=== PATIENT | female | born 1940 | race African-American/Black ===

== ENCOUNTER 2016-11-04 10:40 | Emergency (ER) | payer MEDICARE ==
[2016-11-04] MEDS ORDERED: NS 0.9% 1000 ML* 3,000 ML IV ONE (11:20)
[2016-11-04] MEDS ORDERED: methylPREDNISolone SOD SUCC* 125 MG 2 ML VIAL IV ONE (11:20)
[2016-11-04] MEDS ORDERED: Albuterol/Ipratropium NEB.SOL* Albuterol 2.5 MG/Ipratropium 0.5 MG 3 ML INH ONE (11:20)
[2016-11-04] MEDS ORDERED: Albuterol/Ipratropium NEB.SOL* Albuterol 2.5 MG/Ipratropium 0.5 MG 3 ML ONE (11:48)
[2016-11-04 11:51] LABS: Add Diff/Slide Review? Slide Review Added; Comments Flag Yes; Hematocrit 42 % (35-47); Hemoglobin 13.7 g/dl (12.0-16.0); Mean Corpuscular HGB Conc 33 g/dl (31-36); Mean Corpuscular Hemoglobin 30 pg (27-31); Mean Corpuscular Volume 91 fL (80-97); Mean Platelet Volume 8 um3 (7.4-10.4); Red Blood Count 4.59 10^6/ul (4.0-5.4); Red Cell Distribution Width 13 % (10.5-15); White Blood Count 3.3 10^3/ul (3.5-10.8)
[2016-11-04 12:12] LABS: BUN/Creatinine Ratio 11.9 (8-20); Calcium 9.5 mg/dL (8.6-10.3); EGFR African American 85.5 (>60); EGFR Non-African American 66.5 (>60); Globulin 3.6 g/dL (2-4); Potassium 3.9 mmol/L (3.5-5.0); Total Bilirubin 0.3 mg/dL (0.2-1.0); Total Protein 7.6 g/dL (6.4-8.9)
--- NOTE | 2016-11-04 13:22 | RAD ---
INDICATION: Cough, shortness of breath and wheezing. COMPARISON: There are no prior studies available for comparison. TECHNIQUE: Dual-energy PA and lateral views of the chest were obtained. FINDINGS: The heart is within normal limits in size. Note is made of a tortuous ectatic thoracic aorta. The lungs are hyperinflated and clear with flattening of the diaphragms consistent with chronic obstructive pulmonary disease. No pleural effusion is seen. IMPRESSION: FINDINGS CONSISTENT WITH COPD, NO EVIDENCE FOR ACUTE FINDING.
[2016-11-04] MEDS ORDERED: HYDROcodone/ACETAMIN 5-325 MG* 1 TAB PO ONE (13:56)
[2016-11-04 14:25] VITALS: BP 129/80
--- NOTE | 2016-11-04 15:35 | ED ---
Memo Andre Rebecca, scribed for Marty Hughes MD on 11/04/16 at 1103 . Respiratory - HPI Summary HPI Summary: Pt is a 75 y/o F who presents to ED c/o cough. Sx began suddenly 2 weeks ago and have been constant and worsening since onset. Cough was productive with yellow sputum for the first week, but is no longer productive, with the pt reporting it feels like phlegm is stuck in her chest. Sx aggravated by laying down and at night, alleviated by nothing, unchanged by Robitussin. Additionally c/o wheezing, fever, chills, watery eye drainage and sinus pain. Reports severe rib, chest and back musculoskeletal soreness as a result of coughing. Denies CP , edema, calf pain, body aches. Denies rash, V/D. Confirms receiving a flu and PNA vaccination this year. Denies any recent travel. Positive recent sick contact with multiple grandchildren. PMHx PNA. Current presentation of illness is not similar to when she had PNA. No PMHx COPD, emphysema, asthma. SHx no tobacco or alcohol use. - History of Current Complaint Chief Complaint: EDShortnessOfBreath Stated Complaint: SHORT OF BREATH, COUGH, CHEST PAIN Time Seen by Provider: 11/04/16 10:56 Hx Obtained From: Patient Onset/Duration: Sudden Onset, Lasting Weeks - 2 weeks, Still Present Timing: Constant Initial Severity: Moderate Current Severity: Moderate Pain Intensity: 8 Character: Wheezing, Cough (Productive) - for the first week, Cough ( Nonproductive) - currently Sputum Color: Yellow Aggravating Factor(s): Other - Laying down and at night Alleviating Factor(s): Nothing Associated Signs and Symptoms: Fever, Wheezing, Chills, Sinus Discomfort - Allergy/Home Medications Allergies/Adverse Reactions: Allergies Allergy/AdvReac Type Severity Reaction Status Date / Time No Known Allergies Allergy Verified 04/28/16 14:49 PMH/Surg Hx/FS Hx/Imm Hx Cardiovascular History: Reports: Hx Hypertension Sensory History: Reports: Hx Glaucoma Opthamlomology History: Reports: Hx Glaucoma Neurological History: Reports: Hx Migraine Infectious Disease History: No Infectious Disease History: Denies: Traveled Outside the [place] in Last 30 Days - Family History Known Family History: Positive: Other - GUPTA (sister) - Social History Alcohol Use: None Substance Use Type: Reports: None Smoking Status (MU): Never Smoked Tobacco Review of Systems Positive: Fever, Chills Positive: Drainage - watery Positive: Other - Sinus discomfort Negative: Chest Pain Positive: Cough - nonproductive Negative: Vomiting, Diarrhea Positive: Myalgia - rib, chest and back musculoskeletal pain , Other - Denies calf pain and body aches. Negative: Edema Negative: Rash All Other Systems Reviewed And Are Negative: Yes Physical Exam - Summary Physical Exam Summary: The patient is well-nourished in no acute distress and in no acute pain. The skin is warm and dry and skin color reflects adequate perfusion. HEENT: The head is normocephalic and atraumatic. The pupils are equal and reactive. Injection in her left conjunctiva more so than the right. Nares are patent and without drainage. Mouth reveals slightly dry mucous membranes and the throat is without erythema and exudate. The external ears are intact. The ear canals are patent and without drainage. The tympanic membranes are intact. Tenderness over the maxillary area and bilateral frontal sinuses. Neck is supple with full range of motion and non-tender. There are no carotid bruits. There is neck vein distension. Respiratory: Chest is non-tender. Lungs reveal bilateral wheezing and rales in the bases, more on the right than left, upon auscultation. No retractions seen. Some upper airway noise in the neck. Cardiovascular: Hear is regular rate and rhythm. There is no murmur or rub auscultated. There is no peripheral edema and pulses are symmetrical and equal. Abdomen: The abdomen is soft and non-tender. There are normal bowel sounds heard in all four quadrants and there is no organomegaly palpated. Musculoskeletal: There is no back pain noted. Extremities are non-tender with full range of motion. Capillary refill of 2 seconds with good skin turgor. There is no peripheral edema or calf tenderness elicited. Neurological: Patient is alert and oriented to person, place and time. The patient has symmetrical motor strength in all four extremities. Cranial nerves are grossly intact. Deep tendon reflexes are symmetrical and equal in all four extremities. Psychiatric: The patient has an appropriate affect and does not exhibit any anxiety or depression. Triage Information Reviewed: Yes Vital Signs On Initial Exam: Initial Vitals Temp Pulse Resp BP Pulse Ox 96.6 F 105 20 160/92 99 11/04/16 10:42 11/04/16 10:42 11/04/16 10:42 11/04/16 10:42 11/04/16 10:42 Vital Signs Reviewed: Yes Diagnostics - Vital Signs Vital Signs Temp Pulse Resp BP Pulse Ox 11/04/16 10:42 96.6 F 105 20 160/92 99 - Laboratory Lab Results: Lab Results 11/04/16 11/04/16 11/04/16 Range/Units 11:17 11:40 11:40 WBC 3.3 L (3.5-10.8) 10^3/ul RBC 4.59 (4.0-5.4) 10^6/ul Hgb 13.7 (12.0-16.0) g/dl Hct 42 (35-47) % MCV 91 (80-97) fL MCH 30 (27-31) pg MCHC 33 (31-36) g/dl RDW 13 (10.5-15) % Plt Count 263 (150-450) 10^3/ul MPV 8 (7.4-10.4) um3 Neut % (Auto) 29.2 L (38-83) % Lymph % (Auto) 47.0 (25-47) % Rankin % (Auto) 13.4 H (1-9) % Eos % (Auto) 7.9 H (0-6) % Baso % (Auto) 2.5 H (0-2) % Absolute Neuts (auto) 1.0 L (1.5-7.7) 10^3/ul Absolute Lymphs (auto) 1.6 (1.0-4.8) 10^3/ul Absolute Monos (auto) 0.4 (0-0.8) 10^3/ul Absolute Eos (auto) 0.3 (0-0.6) 10^3/ul Absolute Basos (auto) 0.1 (0-0.2) 10^3/ul Absolute Nucleated RBC 0.01 10^3/ul Nucleated RBC % 0.2 Sodium 137 (133-145) mmol/L Potassium 3.9 (3.5-5.0) mmol/L Chloride 102 (101-111) mmol/L Carbon Dioxide 30 (22-32) mmol/L Anion Gap 5 (2-11) mmol/L BUN 10 (6-24) mg/dL Creatinine 0.84 (0.51-0.95) mg/dL Est GFR ( Amer) 85.5 (>60) Est GFR (Non-Af Amer) 66.5 (>60) BUN/Creatinine Ratio 11.9 (8-20) Glucose 109 H (70-100) mg/dL Lactic Acid (0.5-2.0) mmol/L Calcium 9.5 (8.6-10.3) mg/dL Total Bilirubin 0.30 (0.2-1.0) mg/dL AST 37 (13-39) U/L ALT 34 (7-52) U/L Alkaline Phosphatase 111 H (34-104) U/L Troponin I 0.00 (<0.04) ng/mL C-Reactive Protein (< 5.00) mg/L B-Natriuretic Peptide ( - 100) pg/mL Total Protein 7.6 (6.4-8.9) g/dL Albumin 4.0 (3.2-5.2) g/dL Globulin 3.6 (2-4) g/dL Albumin/Globulin Ratio 1.1 (1-3) Influenza A (Rapid) Negative (Negative) Influenza B (Rapid) Negative (Negative) 11/04/16 11/04/16 11/04/16 Range/Units 11:40 11:40 12:00 WBC (3.5-10.8) 10^3/ul RBC (4.0-5.4) 10^6/ul Hgb (12.0-16.0) g/dl Hct (35-47) % MCV (80-97) fL MCH (27-31) pg MCHC (31-36) g/dl RDW (10.5-15) % Plt Count (150-450) 10^3/ul MPV (7.4-10.4) um3 Neut % (Auto) (38-83) % Lymph % (Auto) (25-47) % Rankin % (Auto) (1-9) % Eos % (Auto) (0-6) % Baso % (Auto) (0-2) % Absolute Neuts (auto) (1.5-7.7) 10^3/ul Absolute Lymphs (auto) (1.0-4.8) 10^3/ul Absolute Monos (auto) (0-0.8) 10^3/ul Absolute Eos (auto) (0-0.6) 10^3/ul Absolute Basos (auto) (0-0.2) 10^3/ul Absolute Nucleated RBC 10^3/ul Nucleated RBC % Sodium (133-145) mmol/L Potassium (3.5-5.0) mmol/L Chloride (101-111) mmol/L Carbon Dioxide (22-32) mmol/L Anion Gap (2-11) mmol/L BUN (6-24) mg/dL Creatinine (0.51-0.95) mg/dL Est GFR ( Amer) (>60) Est GFR (Non-Af Amer) (>60) BUN/Creatinine Ratio (8-20) Glucose (70-100) mg/dL Lactic Acid 1.1 (0.5-2.0) mmol/L Calcium (8.6-10.3) mg/dL Total Bilirubin (0.2-1.0) mg/dL AST (13-39) U/L ALT (7-52) U/L Alkaline Phosphatase (34-104) U/L Troponin I (<0.04) ng/mL C-Reactive Protein 7.57 H (< 5.00) mg/L B-Natriuretic Peptide 12 ( - 100) pg/mL Total Protein (6.4-8.9) g/dL Albumin (3.2-5.2) g/dL Globulin (2-4) g/dL Albumin/Globulin Ratio (1-3) Influenza A (Rapid) (Negative) Influenza B (Rapid) (Negative) Result Diagrams: 11/04/16 11:40 11/04/16 11:40 Lab Statement: Any lab studies that have been ordered have been reviewed, and results considered in the medical decision making process. - Radiology CXR Radiology Interpretation Completed By: Radiologist - FINDINGS CONSISTENT WITH COPD, NO EVIDENCE FOR ACUTE FINDING. - EKG 1345 Cardiac Rate: Tachycardia - 100 bpm EKG Rhythm: Sinus Rhythm ST Segment: Non-Specific - non-specific T wave changes in V2,V3, unchanged from EKG in 2011 EKG Interpretation: Normal axis, no STEMI EKG Comparison: No Significant Change - from EKG on 11/22/2011 Re-Evaluation - Re-Evaluation First Eval Re-Evaluation Time: 13:46 Change: Improved Comment: Reassesser her and listened to the lungs. A little bit of ronchi, the wheezing is gone. Pt reports feeling better besides GUPTA. Reviewed labs at length with her and reviewed CXR, likely revealing acute bronchitis but may be atypical PNA. Agreed to be D/C to home and followup with her PCP with prescriptions for an inhaler, Abx, a courseof Prednisone, and cough medication. Disposition - Course Assessment/Plan: Pt is a 75 y/o F with a CC of cough for 2 weeks, initially productive but now nonproductive. Additionally c/o wheezing, fever, chills, watery eye drainage and sinus pain. Reports severe rib, chest and back musculoskeletal soreness as a result of coughing. Denies CP, edema, calf pain, body aches. Denies rash, V/D. Rapid influenza A and B negative. CXR and EKG reveal no acute findings. Pt will be D/C to home with a dx of acute bronchitis, a followup with her PCP and prescriptions for Zithromax, an inhaler, a 5 day course of Prednisone 60 mg and Rocephin with codeine cough suppressant. - Differential Dx - Cardiopulmonary Differential Diagnoses - Cardiopulmonary: Asthma, Bronchitis, Exacerbation Of COPD, Influenza, Lower Resp Infection - Diagnoses Provider Diagnoses: Acute bronchitis Discharge - Discharge Plan Condition: Stable Disposition: HOME Prescriptions: Albuterol HFA INHALER* [Ventolin HFA Inhaler*] 2 puff INH Q6H PRN #1 mdi PRN Reason: cough Azithromycin TAB* [Zithromax TAB (Z-HEATHER) 250 mg #6 tabs] 2 tab PO .TODAY, THEN 1 DAILY #1 heather guaiFENesin/CODIEN 100MG-10MG* [Robitussin AC 100Mg-10Mg*] 10 ml PO Q4H PRN # 120 ml MDD 40 ml PRN Reason: cough predniSONE TAB* [Deltasone TAB*] 60 mg PO DAILY #15 tab Patient Education Materials: Acute Bronchitis (ED) Referrals: Rhys Arenas MD [Medical Doctor] - 3 Days (Follow up with Dr. Arenas in the next 3 days. ) The documentation as recorded by the Memo rivas Rebecca accurately reflects the service I personally performed and the decisions made by me, Marty Hughes MD.
== END 2016-11-04 14:18 | disposition home or self-care (01) ==
LOC: ED 10:40
DX: J40 Bronchitis, not specified as acute or chronic (principal); R07.9 Chest pain, unspecified; R50.9 Fever, unspecified; R06.2 Wheezing; R05 Cough
CPT/HCPCS: 36415; 71020; 80053; 83605; 83880; 84484; 85025; 86140; 87040; 87502; 93005; 94640; 96374; 99283; A9270-GY; J2930

== ENCOUNTER 2017-07-01 11:31 | Observation (INO) | payer MEDICARE, MEDICAID ==
[2017-07-01] MEDS ORDERED: Ketorolac INJ* 30 MG/ML 1 ML VIAL IV PUSH ONE (12:13)
[2017-07-01] MEDS ORDERED: NS 0.9% 1000 ML* 1,000 ML IV ONE (12:13)
[2017-07-01 12:55] LABS: Hematocrit 39 % (35-47); Hemoglobin 12.9 g/dl (12.0-16.0); Mean Corpuscular HGB Conc 34 g/dl (31-36); Mean Corpuscular Hemoglobin 30 pg (27-31); Mean Corpuscular Volume 91 fL (80-97); Mean Platelet Volume 7 um3 (7.4-10.4); Red Blood Count 4.25 10^6/ul (4.0-5.4); Red Cell Distribution Width 13 % (10.5-15); White Blood Count 10.6 10^3/ul (3.5-10.8)
--- NOTE | 2017-07-01 13:08 | RAD ---
INDICATION: Sepsis. COMPARISON: Comparison is made with a prior chest x-ray study from November 04, 2016. TECHNIQUE: A portable view of the chest was obtained. FINDINGS: Cardiac and mediastinal contours appear to be within normal limits. The lungs are slightly underinflated. There are linear densities at both lung bases most consistent with subsegmental atelectasis. The lungs are otherwise clear. No pleural effusion is seen. IMPRESSION: NO EVIDENCE FOR ACUTE FINDING.
[2017-07-01 13:10] LABS: Albumin 3.9 g/dL (3.2-5.2); Calcium 8.9 mg/dL (8.6-10.3); EGFR African American 100.2 (>60); EGFR Non-African American 77.9 (>60); Globulin 3.3 g/dL (2-4); Potassium 3.4 mmol/L (3.5-5.0); Total Bilirubin 0.5 mg/dL (0.2-1.0); Total Protein 7.2 g/dL (6.4-8.9)
[2017-07-01] MEDS ORDERED: Iohexol 350* (CONTRAST) 500 ML MDV IV ONE (13:38)
--- NOTE | 2017-07-01 14:29 | RAD ---
INDICATION: Elevated d-dimer, pleuritic chest pain. COMPARISON: Comparison is made with a prior chest x-ray study from July 01, 2017 and a prior abdominal ultrasound from February 14, 2010. TECHNIQUE: A CT angiogram of the chest was performed with intravenous following intravenous injection of 75 ml of Omnipaque 350 nonionic contrast. Contiguous axial sections were obtained from the lung apices through the lung bases. Images were reconstructed in the coronal and sagittal planes. FINDINGS: There is slightly suboptimal opacification of the pulmonary arteries. No intraluminal filling defect or pulmonary embolism is seen. The heart is within normal limits in size. There are coronary artery calcifications present. No pericardial effusion is present. The thoracic aorta is normal in caliber and demonstrates homogeneous contrast opacification. No significant enlarged mediastinal or hilar lymph nodes are seen. The lungs are clear. No pleural effusion is seen. Images of the upper abdomen demonstrate several fluid density lesions. On the prior ultrasound from 2009 note is made of several cysts and findings suggestive of hemangiomas. These likely account for the lesions on the current study. There is also pancreatic ductal distention which is unchanged from a prior MRCP of the abdomen from February 08, 2011. No significant focal osseous abnormality is seen. There is a nodular density present in the lateral aspect of the right breast measuring 2.1 x 1.6 cm in size. IMPRESSION: 1. SLIGHTLY LIMITED EXAM, NO EVIDENCE FOR PULMONARY EMBOLISM. 2. NODULAR DENSITY IN THE LATERAL RIGHT BREAST. RECOMMEND FOLLOW-UP OUTPATIENT MAMMOGRAMS AND A RIGHT BREAST ULTRASOUND FOR FURTHER EVALUATION. 3. CHRONIC PANCREATIC DUCTAL DISTENTION POSSIBLY SECONDARY TO CHRONIC PANCREATITIS. RECOMMEND CLINICAL CORRELATION.
[2017-07-01 14:31] LABS: Urine Bilirubin Negative (Negative); Urine Glucose Negative (Negative); Urine Nitrite Negative (Negative)
[2017-07-01] MEDS ORDERED: NS 0.9% 1000 ML* 2,000 ML IV ONE (15:36)
[2017-07-01] MEDS ORDERED: Clindamycin CAP* 150 MG PO ONE (15:39)
[2017-07-01] MEDS ORDERED: HYDROcodone/ACETAMIN 5-325 MG* 1 TAB PO ONE (15:55)
[2017-07-01] MEDS ORDERED: Acetaminophen TAB* 325 MG PO PRN (16:46)
[2017-07-01] MEDS ORDERED: Ondansetron INJ* 2 MG/ML VIAL IV PRN (16:46)
[2017-07-01] MEDS ORDERED: guaiFENesin LIQ* 100 MG/5 ML UDC PO PRN (16:46)
[2017-07-01] MEDS ORDERED: Albuterol 2.5 MG/3 ML NEB.SOL* (0.083%) INH PRN (16:49)
[2017-07-01] MEDS ORDERED: Saline NASAL SPRAY 0.65%* BTL BOTH NARES PRN (16:49)
[2017-07-01] MEDS ORDERED: NS 0.9% w/ 40 Meq KCL 1000 ML* 1,000 ML IV SCH (17:00)
[2017-07-01] MEDS ORDERED: Levofloxacin 500 MG IVPREMIX(* 500 MG/100 ML BAG IVPB SCH (18:00)
[2017-07-01] MEDS ORDERED: Oseltamivir CAP* 75 MG PO SCH (21:00)
[2017-07-01] MEDS: Heparin VIAL(*) 5000 UNITS/ML VIAL (FIVE THOUSAND) SUBCUT SCH (21:52)
--- NOTE | 2017-07-01 21:59 | HP ---
CC: Chay Basilio * HISTORY AND PHYSICAL: DATE OF ADMISSION: 07/01/17 TIME OF EVALUATION: 4:30 p.m. CHIEF COMPLAINT: "My body hurts." HISTORY OF PRESENT ILLNESS: Ms. Carrington is a 76-year-old lady with past medical history of hypertension, pancreatic duct dilatation that presented to the emergency room with complaints of body aches. The patient states that this month she has had 3 episodes of respiratory infection. Initially she had some cough and runny nose that improved, then it happened again when her grandson got sick and this last one started on . This last one has been more severe with fever up to 102 at home, considerable body aches, watery eyes, rhinorrhea, cough and shortness of breath. She states that she takes care of 3 grand kids at home and all 3 are sick at this time. She did not take the flu shot yet this year. She also complains of headache associated with nasal congestion that she thinks is related to sinusitis. PAST MEDICAL HISTORY: 1. Hypertension. 2. Pancreatic duct dilatation. 3. Right breast nodule being followed as outpatient. MEDICATIONS: 1. Aspirin 325 mg p.o. daily. 2. Hydrochlorothiazide 12.5 mg p.o. daily. The patient states that she also takes a medication for her stomach but she does not recall the name at this time. ALLERGIES: With CODEINE, the patient has nausea and vomiting. FAMILY HISTORY: Mother of old age. Sister has breast cancer. SOCIAL HISTORY: The patient smoked half a pack a day since high school until 15 years ago. She drinks alcohol rarely. No history of drug use. Surrogate decision maker is her daughter, Kristina Lerma, phone number is [phone]. REVIEW OF SYSTEMS: A 14-point review of systems was performed and all the pertinent negative and positive findings are in the HPI. PHYSICAL EXAMINATION GENERAL: The patient is a pleasant lady, sitting up in the ED stretcher, in no acute distress. VITAL SIGNS: Temperature 99.9, heart rate is 102, respiratory rate is 18, oxygen saturation is 96% on room air, blood pressure is 151/96. HEENT: Pupils are equal. Eyes are watery and injected. CHEST: Breath sounds present bilaterally with no added sounds. CVS: Normal S1, S2. Regular rate and rhythm. ABDOMEN: Soft. Bowel sounds are present. EXTREMITIES: No edema. NEUROLOGIC: She is alert and oriented x3, able to move all 4 extremities. LABORATORY AND IMAGING DATA: The patient had a CBC that showed a WBC of 10.6, hemoglobin of 12.9, hematocrit of 39, platelet count of 255,000 with 82% neutrophils. INR is 1.1. D-dimer was 374. Chemistry showed sodium of 136, potassium 3.4, chloride of 102, bicarb 26. BUN of 8, creatinine 0.73, glucose of 102, lactic acid of 1, calcium of 8.9, total bilirubin is 0.5, AST of 26, ALT of 26. Urinalysis was negative. Influenza A, B rapid test was also negative. Chest x-ray showed no evidence for acute finding. CTA of the chest was a slightly limited exam with no evidence of pulmonary embolism. There is a nodular density in the lateral right breast. Chronic pancreatic ductal distention possibly secondary to chronic pancreatitis. ASSESSMENT AND PLAN: Mrs. Carrington is a 76-year-old lady with a past medical history of hypertension, chronic pancreatic duct dilatation, known right breast masses that presented to the emergency room with complaints of fever, runny nose , body aches, found to have probable influenza. 1. Probable influenza: Although her influenza rapid test is negative, the patient's symptoms are suggestive of a flu. She was not vaccinated this season. She is going to be admitted as observation to the medical floor. She is going to be treated with Tamiflu. I believe she has had other upper respiratory tract infections earlier this month and she probably also has sinusitis, so I am going to start her on levofloxacin, but I believe this last episode that started on Thanksgiving is influenza. She will receive symptomatic treatment. 2. Hypertension: Her blood pressure is controlled at this time. I am going to hold her hydrochlorothiazide for now. 3. Right breast masses: The patient states that she had an ultrasound done at [place] 2 weeks ago and her primary care provider continues to follow those lesions. 4. Chronic pancreatic duct dilatation. The patient is also aware of these findings and she follows with her primary care provider. 5. DVT prophylaxis: The patient has a score of 3 on the DVT Prophylaxis Risk Assessment Guide and she will be started on subcutaneous heparin. 6. Code status is full. TIME SPENT: Approximately 60 minutes was spent with the patient and daughter interview, medical records reviewed, physical examination to complete this admission; more than half this time was spent [id number] with patient in coordination of care. [id number]/[facility] #: [id number] [place]AL[place]
[2017-07-01] MEDS ORDERED: Oxymetazoline 0.05% NASAL SPR* 15 ML BTL BOTH NARES PRN (22:02)
--- NOTE | 2017-07-01 22:27 | ED ---
Tim Andre Abhishek, scribed for Rafael Tenorio MD on 07/01/17 at 1216 . HPI Febrile Illness - HPI Summary HPI Summary: This patient is a 76 year old F presenting to [facility] accompanied by three females with a chief complaint of fever for about a week and a half. Pt states her whole face hurts and my gums hurt. The CC is described as Intermittent and worse since Sunday. The patient rates the pain 0/10 in severity. Symptoms aggravated by nothing. Symptoms alleviated by nothing. Patient reports chills, body aches, cough (wet), pain when breathing, right sided back pain and pain at the right flank, nasal congestion and dry mouth. Patient denies SOB, and diarrhea. Pt also denies taking a flu shot for this year. - History of Current Complaint Chief Complaint: EDFluSymptoms Time Seen by Provider: 07/01/17 11:42 Hx Obtained From: Patient, Family/Airline Pilot Onset/Duration: Started Weeks Ago - one week and half ago, Still Present, Worse Since - Sunday Timing: Intermittent Pain Intensity: 0 Pain Scale Used: 0-10 Numeric Aggravating Factors: Nothing Alleviating Factors: Nothing Associated Signs and Symptoms: Chills, Cough - "wet", Nausea, Other: - body aches, pain when breathing, right sided back pain and pain at the right flank, nasal congestion and dry mouth - Allergy/Home Medications Allergies/Adverse Reactions: Allergies Allergy/AdvReac Type Severity Reaction Status Date / Time Codeine Allergy Nausea Verified 07/01/17 12:39 PMH/Surg Hx/FS Hx/Imm Hx Cardiovascular History: Reports: Hx Hypertension Sensory History: Reports: Hx Glaucoma Opthamlomology History: Reports: Hx Glaucoma Neurological History: Reports: Hx Migraine Infectious Disease History: No Infectious Disease History: Denies: Traveled Outside the [place] in Last 30 Days - Family History Known Family History: Positive: Hypertension, Other - GUPTA (sister), colon cancer - Social History Alcohol Use: None Substance Use Type: Reports: None Smoking Status (MU): Never Smoked Tobacco Review of Systems Positive: Fever, Chills Positive: Photophobia ENT: Other - nasal congestion, and dry mouth Positive: Other - "pain when breathing". Negative: Shortness Of Breath Positive: Nausea. Negative: Diarrhea Genitourinary: Negative Positive: Other - body aches, right sided back pain and pain at the right flank , Skin: Negative Neurological: Negative Psychological: Normal All Other Systems Reviewed And Are Negative: Yes Physical Exam - Summary Physical Exam Summary: Constitutional: Well-developed, Well-nourished, Alert. (-) Distressed Skin: Warm, Dry HENT: Maxillary sinus tenderness Eyes: Conjunctiva normal Neck: Musculoskeletal ROM normal neck. (-) JVD, (-) Stridor, (-) Tracheal deviation Cardio: Rhythm regular, rate normal, Heart sounds normal; Intact distal pulses; The pedal pulses are 2+ and symmetric. Radial pulses are 2+ and symmetric. (-) Murmur Pulmonary/Chest wall: Effort normal. (-) Respiratory distress, (-) Wheezes, (-) Rales Abd: Soft, (-) Tenderness, (-) Distension, (-) Guarding, (-) Rebound Musculoskeletal: (-) Edema Lymph: (-) Cervical adenopathy Neuro: Alert, Oriented x3 Psych: Mood and affect Normal Triage Information Reviewed: Yes Vital Signs On Initial Exam: Initial Vitals Temp Pulse Resp BP Pulse Ox 99.9 F 114 18 142/91 96 07/01/17 11:44 07/01/17 11:44 07/01/17 11:44 07/01/17 11:44 07/01/17 11:44 Vital Signs Reviewed: Yes - Molly Coma Scale Coma Scale Total: 15 Diagnostics - Vital Signs Vital Signs Temp Pulse Resp BP Pulse Ox 07/01/17 11:49 112 95 07/01/17 11:44 99.9 F 114 18 142/91 96 - Laboratory Lab Results: Lab Results 07/01/17 07/01/17 07/01/17 Range/Units 12:37 12:37 12:37 WBC 10.6 (3.5-10.8) 10^3/ul RBC 4.25 (4.0-5.4) 10^6/ul Hgb 12.9 (12.0-16.0) g/dl Hct 39 (35-47) % MCV 91 (80-97) fL MCH 30 (27-31) pg MCHC 34 (31-36) g/dl RDW 13 (10.5-15) % Plt Count 255 (150-450) 10^3/ul MPV 7 L (7.4-10.4) um3 Neut % (Auto) 82.1 (38-83) % Lymph % (Auto) 10.0 L (25-47) % Cooper % (Auto) 7.2 (1-9) % Eos % (Auto) 0.4 (0-6) % Baso % (Auto) 0.3 (0-2) % Absolute Neuts (auto) 8.7 H (1.5-7.7) 10^3/ul Absolute Lymphs (auto) 1.1 (1.0-4.8) 10^3/ul Absolute Monos (auto) 0.8 (0-0.8) 10^3/ul Absolute Eos (auto) 0 (0-0.6) 10^3/ul Absolute Basos (auto) 0 (0-0.2) 10^3/ul Absolute Nucleated RBC 0 10^3/ul Nucleated RBC % 0 INR (Anticoag Therapy) 1.10 (0.89-1.11) APTT 30.2 (26.0-36.3) seconds D-Dimer, Quantitative 374 H (Less Than 230) ng/mL Sodium 136 (133-145) mmol/L Potassium 3.4 L (3.5-5.0) mmol/L Chloride 102 (101-111) mmol/L Carbon Dioxide 26 (22-32) mmol/L Anion Gap 8 (2-11) mmol/L BUN 8 (6-24) mg/dL Creatinine 0.73 (0.51-0.95) mg/dL Est GFR ( Amer) 100.2 (>60) Est GFR (Non-Af Amer) 77.9 (>60) BUN/Creatinine Ratio 11.0 (8-20) Glucose 102 H (70-100) mg/dL Lactic Acid (0.5-2.0) mmol/L Calcium 8.9 (8.6-10.3) mg/dL Total Bilirubin 0.50 (0.2-1.0) mg/dL AST 26 (13-39) U/L ALT 26 (7-52) U/L Alkaline Phosphatase 96 (34-104) U/L Total Protein 7.2 (6.4-8.9) g/dL Albumin 3.9 (3.2-5.2) g/dL Globulin 3.3 (2-4) g/dL Albumin/Globulin Ratio 1.2 (1-3) Urine Color Urine Appearance Urine pH (5-9) Ur Specific [place] (1.010-1.030) Urine Protein (Negative) Urine Ketones (Negative) Urine Blood (Negative) Urine Nitrate (Negative) Urine Bilirubin (Negative) Urine Urobilinogen (Negative) Ur Leukocyte Esterase (Negative) Urine Glucose (Negative) Influenza A (Rapid) (Negative) Influenza B (Rapid) (Negative) 07/01/17 07/01/17 07/01/17 Range/Units 12:37 12:55 14:10 WBC (3.5-10.8) 10^3/ul RBC (4.0-5.4) 10^6/ul Hgb (12.0-16.0) g/dl Hct (35-47) % MCV (80-97) fL MCH (27-31) pg MCHC (31-36) g/dl RDW (10.5-15) % Plt Count (150-450) 10^3/ul MPV (7.4-10.4) um3 Neut % (Auto) (38-83) % Lymph % (Auto) (25-47) % Cooper % (Auto) (1-9) % Eos % (Auto) (0-6) % Baso % (Auto) (0-2) % Absolute Neuts (auto) (1.5-7.7) 10^3/ul Absolute Lymphs (auto) (1.0-4.8) 10^3/ul Absolute Monos (auto) (0-0.8) 10^3/ul Absolute Eos (auto) (0-0.6) 10^3/ul Absolute Basos (auto) (0-0.2) 10^3/ul Absolute Nucleated RBC 10^3/ul Nucleated RBC % INR (Anticoag Therapy) (0.89-1.11) APTT (26.0-36.3) seconds D-Dimer, Quantitative (Less Than 230) ng/mL Sodium (133-145) mmol/L Potassium (3.5-5.0) mmol/L Chloride (101-111) mmol/L Carbon Dioxide (22-32) mmol/L Anion Gap (2-11) mmol/L BUN (6-24) mg/dL Creatinine (0.51-0.95) mg/dL Est GFR ( Amer) (>60) Est GFR (Non-Af Amer) (>60) BUN/Creatinine Ratio (8-20) Glucose (70-100) mg/dL Lactic Acid 1.0 (0.5-2.0) mmol/L Calcium (8.6-10.3) mg/dL Total Bilirubin (0.2-1.0) mg/dL AST (13-39) U/L ALT (7-52) U/L Alkaline Phosphatase (34-104) U/L Total Protein (6.4-8.9) g/dL Albumin (3.2-5.2) g/dL Globulin (2-4) g/dL Albumin/Globulin Ratio (1-3) Urine Color Straw Urine Appearance Clear Urine pH 8.0 (5-9) Ur Specific [place] 1.010 (1.010-1.030) Urine Protein Negative (Negative) Urine Ketones Negative (Negative) Urine Blood Negative (Negative) Urine Nitrate Negative (Negative) Urine Bilirubin Negative (Negative) Urine Urobilinogen Negative (Negative) Ur Leukocyte Esterase Negative (Negative) Urine Glucose Negative (Negative) Influenza A (Rapid) Negative (Negative) Influenza B (Rapid) Negative (Negative) Result Diagrams: 07/01/17 12:37 07/01/17 12:37 Lab Statement: Any lab studies that have been ordered have been reviewed, and results considered in the medical decision making process. - Radiology Chest X-ray Radiology Interpretation Completed By: Radiologist - CXR reveals, per radiologist, NO EVIDENCE FOR ACUTE FINDING. ED physician has reviewed this radiology report and agrees. - CT Chest CTA CT Interpretation Completed By: Radiologist - A Chest CTA reveals 1. SLIGHTLY LIMITED EXAM, NO EVIDENCE FOR PULMONARY EMBOLISM. 2. NODULAR DENSITY IN THE LATERAL RIGHT BREAST. RECOMMEND FOLLOW-UP OUTPATIENT MAMMOGRAMS AND A RIGHT BREAST ULTRASOUND FOR FURTHER EVALUATION. 3. CHRONIC PANCREATIC DUCTAL DISTENTION POSSIBLY SECONDARY TO CHRONIC PANCREATITIS. RECOMMEND CLINICAL CORRELATION. ED physician has reviewed this radiology report and agrees. - EKG 1214 EKG Rhythm: Sinus Tachycardia - [address] Segment: Normal EKG Interpretation: New TWI at V4 Re-Evaluation - Re-Evaluation 1332 Re-Evaluation Time: 13:32 Change: Unchanged Comment: Pt's daughter states "there are lot of people in the house and no heat " and patient will be not able to rest. Patient's daughter also expresses safety concern going home today. 1536 Re-Evaluation Time: 15:36 Comment: Pt reports weakness, headache, and she and her family would like to be considered for observation for viral illness Course/Dx - Course Course Of Treatment: This patient is a 76 year old F _presenting to [facility] accompanied by three females with a chief complaint of fever for about a week and a half. Patient reports chills, body aches, cough (wet), nausea, pain when breathing, right sided back pain and pain at the right flank, nasal congestion and dry mouth. Patient denies SOB, and diarrhea. A CXR reveals, per radiologist , NO EVIDENCE FOR ACUTE FINDING. ED physician has reviewed this radiology report and agrees. A chest CTA reveals A Chest CTA reveals 1. SLIGHTLY LIMITED EXAM, NO EVIDENCE FOR PULMONARY EMBOLISM. 2. NODULAR DENSITY IN THE LATERAL RIGHT BREAST. RECOMMEND FOLLOW-UP OUTPATIENT MAMMOGRAMS. AND A RIGHT BREAST ULTRASOUND FOR FURTHER EVALUATION. 3. CHRONIC PANCREATIC DUCTAL DISTENTION POSSIBLY SECONDARY TO CHRONIC PANCREATITIS. RECOMMEND CLINICAL CORRELATION. An EKG reveals 109 bpm, sinus tachycardia, normal ST segment, and new T-wave inversions at V4. ED physician has reviewed this radiology report and agrees. Reeval 1332: Pt's family member states lots of people in the house and that house has no heat. Patient will not able to rest according to daughter and patient has safety concern going home today. Reeval 1536: Patient reports. weakness, headache, and that she and her family would like to be considered for observation for viral illness. We discussed patient care with Dr. Miller and she recommended admitting the patient and will accept patient care. Patient will be admitted with a dx of sinusitis, flu-like illness and EKG abnormality. Pt is agreeable with this plan. - Diagnoses Provider Diagnoses: EKG abnormality, Flu-like symptoms, Sinusitis - Provider Notifications Discussed Care Of Patient With: Prema Miller Time Discussed With Above Provider: 15:40 Instructed by Provider To: Admit As Observation Discharge - Discharge Plan Condition: Fair Disposition: ADMITTED TO [facility] documentation as recorded by the Tim rivas Abhishek accurately reflects the service I personally performed and the decisions made by , Rafael Tenorio MD.
[2017-07-02] MEDS: Ibuprofen TAB* 600 MG PO PRN ×2 (00:58→13:56)
[2017-07-02] MEDS: Heparin VIAL(*) 5000 UNITS/ML VIAL (FIVE THOUSAND) SUBCUT SCH (05:23)
[2017-07-02 06:10] LABS: Hematocrit 34 % (35-47); Hemoglobin 11.3 g/dl (12.0-16.0); Mean Corpuscular HGB Conc 33 g/dl (31-36); Mean Corpuscular Hemoglobin 31 pg (27-31); Mean Corpuscular Volume 92 fL (80-97); Mean Platelet Volume 7 um3 (7.4-10.4); Red Cell Distribution Width 13 % (10.5-15)
[2017-07-02 06:30] LABS: BUN/Creatinine Ratio 11.9 (8-20); Calcium 8.7 mg/dL (8.6-10.3); EGFR African American 128.1 (>60); EGFR Non-African American 99.6 (>60)
[2017-07-02 08:08] VITALS: BP 149/92
--- NOTE | 2017-07-03 18:00 | DS ---
CC: Dr. Consuelo Mackey * DISCHARGE SUMMARY: DATE OF ADMISSION: 07/01/17 DATE OF DISCHARGE: 07/02/17 PRIMARY CARE PHYSICIAN: Dr. Consuelo Mackey. MY ATTENDING WHILE IN THE HOSPITAL: Dr. Malissa Sifuentes * (DICTATED BY RAFAEL MOSER) PRIMARY DISCHARGE DIAGNOSES: 1. Viral upper respiratory infection. 2. Bacterial sinusitis. SECONDARY DISCHARGE DIAGNOSES: 1. Hypertension. 2. Pancreatic duct dilatation. 3. Right breast nodule. 4. Possible muscular DVT of the lower extremity. STUDIES DONE WHILE IN THE HOSPITAL: Chest x-ray from 07/01/17, read as no evidence for acute finding. Electrocardiogram from 07/01/17 shows sinus tachycardia, right atrial enlargement, T-wave inversion and flattening in the precordial and lateral chest leads. QTc of 419, no other abnormalities. Chest thorax CTA read as slightly limited exam, no evidence for pulmonary embolism, nodular density in the lateral right breast, recommend followup outpatient mammograms and right breast ultrasound for further evaluation. Chronic pancreatic duct ductal distention possibly secondary to pancreatitis. Recommend clinical correlation. MEDICATIONS: At discharge: 1. Hydrochlorothiazide 12.5 mg p.o. daily. 2. Aspirin 325 mg p.o. daily. 3. Tylenol 650 mg p.o. q.6 hours as needed. 4. Guaifenesin 1200 mg p.o. b.i.d. 5. Ibuprofen 600 mg p.o. q.6 hours as needed. 6. Levofloxacin 750 mg p.o. daily x4. 7. Saline nasal spray one spray both nares q.4 hours as needed. New medications at discharge: Tylenol, guaifenesin, Motrin, levofloxacin, and saline nasal spray. Medications discontinued at discharge: None. HOSPITAL COURSE: This is a brief summary of the patient's presentation. For more details, please see the history and physical from Dr. Prema Joya from 07/01/17. In brief, the patient is a 76-year-old female with past medical history as above, who presents with three episodes of upper respiratory infection, cough and runny nose, which improved and then got worse again. The patient also has several members of her family where she lives with who were sick. The patient had a fever up to 102 with watery eyes, rhinorrhea, cough, and shortness of breath. The patient did not receive her flu shot. The patient was admitted for possible flu and possible bacterial sinusitis. The patient was treated with levofloxacin and received one dose of Tamiflu. The patient improved significantly overnight, but continued to have shortness of breath, cough and pain over her sinuses; however, the patient states that she felt that with antibiotics should be able to go home. The patient's influenza A and B tests were negative. The patient had no growth in her blood cultures. The patient's highest temperature in the hospital was 99.9. The patient was never hypoxic. The patient denied other acute complaints overnight. The patient asked me questions, I answered to her satisfaction. PHYSICAL EXAM ON THE DAY OF DISCHARGE: General: The patient is a 76-year-old female who appears stated age and sitting comfortably in bed in no acute distress. Vital Signs: At discharge, temperature 97.9, pulse rate 83, respiratory rate 18, oxygen saturation 97% on room air, blood pressure 149/92. HEENT: Head: Normocephalic, atraumatic. Sclerae anicteric. There is tenderness to palpation over the bilateral frontal and maxillary sinuses. Transillumination was nondiagnostic. Nasal mucosa moist without rhinorrhea. Pharynx, nonerythematous. No exudate. Oral mucosa moist. Neck: Supple, nontender. No lymphadenopathy. No carotid bruits auscultated. Cardiac: Regular rate and rhythm. No clicks, murmurs, gallops, or rubs. Pulses are 2+ in the bilateral radial, dorsalis pedis and posterior tibialis areas. No edema. Respiratory: Clear to auscultation bilaterally. No wheezes, rales, or rhonchi. Abdomen: Soft, nontender, nondistended. Bowel sounds present, normoactive in all four quadrants. No abdominal bruits auscultated. No hepatosplenomegaly. Genitourinary: No CVA tenderness or suprapubic tenderness. Skin: Clean, dry, and intact. No rash. Neuro: Cranial nerves II through XII grossly intact. No focal deficits. Alert and oriented x3. Psychiatric: Pleasant and cooperative. LABORATORY DATA: White blood cell count 11.0, hemoglobin 11.3, platelet count 238. D-dimer on admission 374. Sodium 138, potassium 4.0, chloride 110, carbon dioxide 25, anion gap of 3, BUN 7, creatinine 0.59. Glucose 95, lactic acid 1.1 , calcium 8.7, calcium 8.9. Total bilirubin 0.5, AST 26, ALT 26, alkaline phosphatase 96, protein 7.2, albumin 3.9, globulin 3.3. Urine benign. DISCHARGE PLAN: The patient will be discharged home with continuation of supportive care including antipyretics, guaifenesin and nasal spray as above. The patient was given Afrin nasal spray while in the hospital. The patient was warrant that if she is to use Afrin nasal spray at home, she should not use more than 3 days worth. The patient will be started on Levaquin for a 5 day course including the dose she received in the hospital for her bacterial sinuitis and possible community-acquired pneumonia that may resolve a secondary infection from possible influenza. The patient has had these symptoms for 5 days now and therefore even if she had the flu, would have no benefit from treatment with Tamiflu at this time. The patient should have activity as tolerated. The patient should have a heart healthy diet with no caffeine. TIME SPENT: Approximately 40 minutes were spent on this discharge, 20 of which was spent [id number] with the patient, obtaining history and physical and discussing the treatment plan. RAFAEL MOSER [id number]/[facility] #: [id number] MTDD
== END 2017-07-02 16:05 | disposition home or self-care (01) ==
LOC: ED 11:31 → SSU 16:40
PROVIDERS: ADMIT Internal Medicine; ATTEND Hospitalist
DX: J06.9 Acute upper respiratory infection, unspecified (principal); J32.9 Chronic sinusitis, unspecified; B96.89 Other specified bacterial agents as the cause of diseases classified elsewhere; I10 Essential (primary) hypertension; R10.9 Unspecified abdominal pain; R07.9 Chest pain, unspecified; R94.31 Abnormal electrocardiogram [ECG] [EKG]; I51.7 Cardiomegaly; K86.89 Other specified diseases of pancreas; N63.0 Unspecified lump in unspecified breast; Z79.899 Other long term (current) drug therapy; F17.210 Nicotine dependence, cigarettes, uncomplicated
CPT/HCPCS: 36415; 71010; 71275; 80048; 80053; 81003; 83605; 85025; 85379; 85610; 85730; 87040; 87502; 93005; 96361; 96365; 96372; 96375; 99284; A9270-GY; G0378; J1644; J1885; J1956; Q9967

== ENCOUNTER 2017-12-11 10:36 | Emergency (ER) | payer MEDICARE, MEDICAID ==
--- NOTE | 2017-12-11 11:18 | ED ---
Hypertension - HPI Summary HPI Summary: Pt here for BP check - started HCTZ through PCP's office recently - didn't take dose yet this morning as she hasn't eaten yet. Denies CV sx however she admits she's anxious about her Rt breast tenderness which was told is a cyst. After lengthy conversation, she states she feels a weight has been lifted. She will keep f/u appts w/ breast specialist but feels mentally less stressed that she has cancer. - History of Current Complaint Chief Complaint: EDHypertension Stated Complaint: HIGH BP Time Seen by Provider: 12/11/17 10:50 Hx Obtained From: Patient - Allergies/Home Medications Allergies/Adverse Reactions: Allergies Allergy/AdvReac Type Severity Reaction Status Date / Time codeine Allergy Nausea Verified 12/11/17 10:45 PMH/Surg Hx/FS Hx/Imm Hx Previously Healthy: Yes Endocrine/Hematology History: Denies: Hx Diabetes Cardiovascular History: Reports: Hx Hypertension - HCTZ GI History: Reports: Other GI Disorders - dilated pancreatic duct, resolved in hospital Sensory History: Reports: Hx Glaucoma Denies: Hx Contacts or Glasses, Hx Hearing Aid Opthamlomology History: Reports: Hx Glaucoma Denies: Hx Contacts or Glasses Neurological History: Reports: Hx Migraine - Surgical History Surgery Procedure, Year, and Place: cataracts, pancreatic duct dilation. total hysterectomy Infectious Disease History: No Infectious Disease History: Denies: Traveled Outside the [place] in Last 30 Days - Family History Known Family History: Positive: Hypertension, Other - GUPTA (sister), colon and breast cancer - Social History Occupation: Retired Lives: With Family Alcohol Use: None Hx Substance Use: No Substance Use Type: Reports: None Hx Tobacco Use: No Smoking Status (MU): Never Smoked Tobacco Physical Exam Vital Signs On Initial Exam: Initial Vitals Temp Pulse Resp BP Pulse Ox 97.3 F 96 16 140/99 95 12/11/17 10:45 12/11/17 10:45 12/11/17 10:45 12/11/17 10:45 12/11/17 10:45 Diagnostics - Vital Signs Vital Signs Temp Pulse Resp BP Pulse Ox 12/11/17 10:45 97.3 F 96 16 140/99 95 - Laboratory Lab Statement: Any lab studies that have been ordered have been reviewed, and results considered in the medical decision making process. Hypertension Course/Dx - Diagnoses Provider Diagnoses: Hypertension Discharge - Sign-Out/Discharge Documenting (check all that apply): Discharge/Admit/Transfer - Discharge Plan Condition: Stable Disposition: HOME Patient Education Materials: Hypertension (ED), Stress (ED) Referrals: Mary Anne Rider MD [Primary Care Provider] - Additional Instructions: Take blood pressure medications as directed and keep follow-up with PCP. *If you develop headache, change in vision, chest pain, shortness of breath, fatigue, return to ED If you feel stressed about medical conditions, use stress reduction techniques to aid in helping you through testing and trial periods. - Billing Disposition and Condition Condition: STABLE Disposition: HOME
[2017-12-11 11:36] VITALS: BP 138/98
== END 2017-12-11 11:28 | disposition home or self-care (01) ==
LOC: ED 10:36
DX: I10 Essential (primary) hypertension (principal)
CPT/HCPCS: 99282

== ENCOUNTER 2018-09-12 12:51 | Emergency (ER) | payer MEDICAID, MEDICARE ==
--- NOTE | 2018-09-12 13:16 | ED ---
Abdominal Pain/Female - HPI Summary HPI Summary: This patient is a 77 year old female presenting to [facility] after being sent from [place] for a hernia they could not reduce. She states she has had a hernia for a year that has been increasing in pain for the last seven months. Along with this she c/o fever, chills, and intermittent nausea. Pt states she has a large amount of diaphoresis at night. She denies abnormal bowel movements. Cartwright believes the hernia is incarcerated. Pt has not had CP or SOB. - History of Current Complaint Chief Complaint: EDAbdPain Stated Complaint: ABD PAIN/FEVER Time Seen by Provider: 09/12/18 12:58 Hx Obtained From: Patient Onset/Duration: Lasting Weeks - motnsh, Still Present Timing: Constant Severity Initially: Mild Severity Currently: Mild Pain Intensity: 2 Pain Scale Used: 0-10 Numeric Location: Umbilical Radiates: No Associated Signs and Symptoms: Positive: Fever, Nausea, Other: - chills Allergies/Adverse Reactions: Allergies Allergy/AdvReac Type Severity Reaction Status Date / Time acetaminophen [From Vicodin] Allergy Unknown Verified 09/12/18 13:08 Reaction Details codeine Allergy Nausea Verified 09/12/18 12:57 hydrocodone [From Vicodin] Allergy Unknown Verified 09/12/18 13:08 Reaction Details PMH/Surg Hx/FS Hx/Imm Hx Endocrine/Hematology History: Reports: Other Endocrine/Hematological Disorders - Rt breast cyst Denies: Hx Diabetes Cardiovascular History: Reports: Hx Hypertension - HCTZ (new med) Denies: Hx Myocardial Infarction GI History: Reports: Other GI Disorders - dilated pancreatic duct, resolved in hospital, hernia Sensory History: Reports: Hx Glaucoma Denies: Hx Contacts or Glasses, Hx Hearing Aid Opthamlomology History: Reports: Hx Glaucoma Denies: Hx Contacts or Glasses Neurological History: Reports: Hx Migraine - Surgical History Surgery Procedure, Year, and Place: cataracts, pancreatic duct dilation. total hysterectomy Infectious Disease History: No Infectious Disease History: Denies: Traveled Outside the [place] in Last 30 Days - Family History Known Family History: Positive: Hypertension, Other - GUPTA (sister), colon and breast cancer - Social History Alcohol Use: None Hx Substance Use: No Substance Use Type: Reports: None Hx Tobacco Use: No Smoking Status (MU): Never Smoked Tobacco Review of Systems Positive: Fever, Chills, Skin Diaphoresis Gastrointestinal: Negative - abnormal bowel movements. Positive: Abdominal Pain, Nausea All Other Systems Reviewed And Are Negative: Yes Physical Exam - Summary Physical Exam Summary: VITAL SIGNS: Reviewed. GENERAL: Patient is a well-developed and nourished female who is lying comfortable in the stretcher. Patient is not in any acute respiratory distress. HEAD AND FACE: No signs of trauma. No ecchymosis, hematomas or skull depressions. No sinus tenderness. EYES: PERRLA, EOMI x 2, No injected conjunctiva, no nystagmus. EARS: Hearing grossly intact. Ear canals and tympanic membranes are within normal limits. MOUTH: Oropharynx within normal limits. NECK: Supple, trachea is midline, no adenopathy, no JVD, no carotid bruit, no c- spine tenderness, neck with full ROM. CHEST: Symmetric, no tenderness at palpation LUNGS: Clear to auscultation bilaterally. No wheezing or crackles. CVS: Regular rate and rhythm, S1 and S2 present, no murmurs or gallops appreciated. ABDOMEN: there is a ventral hernia of the left side that is easily reducible. EXTREMITIES: FROM in all major joints, no edema, no cyanosis or clubbing. NEURO: Alert and oriented x 3. No acute neurological deficits. Speech is normal and follows commands. SKIN: Dry and warm Triage Information Reviewed: Yes Vital Signs On Initial Exam: Initial Vitals Temp Pulse Resp BP Pulse Ox 98.5 F 80 16 140/93 96 09/12/18 12:54 09/12/18 12:54 09/12/18 12:54 09/12/18 12:54 09/12/18 12:54 Vital Signs Reviewed: Yes Diagnostics - Vital Signs Vital Signs Temp Pulse Resp BP Pulse Ox 09/12/18 13:06 85 24 163/94 98 09/12/18 12:54 98.5 F 80 16 140/93 96 - Laboratory Result Diagrams: 09/12/18 13:42 09/12/18 13:42 Lab Statement: Any lab studies that have been ordered have been reviewed, and results considered in the medical decision making process. - CT CT ABD/Pelvis CT Interpretation Completed By: Radiologist Summary of CT Findings: Renal cysts. Diverticulosis without definite evidence of diverticulitis. Prominent pancreatic duct without abrupt termination of the pancreatic duct. Multiple hepatic cysts are noted. Dr Zapien has reviewed this report - EKG 1323 Cardiac Rate: NL EKG Rhythm: Sinus Rhythm - at 82 BPM EKG Comparison: No Significant Change - compared to 07-01-17 Summary of EKG Findings: no ST elevations Abdominal Pain Fem Course/Dx - Course Course Of Treatment: Blood work without any significant abnormality except for potassium level of 3.4 and urinalysis negative for UTI. Abdominopelvic CT impression: Renal disease. Diverticulosis without definite evidence of diverticulitis. Prominent pancreatic duct without a bruit termination of the pancreatic duct. Multiple hepatic cysts are noted. In the ED course during the physical exam the patient doesnt have an incarcerated hernia. The hernias is easily reduced the left sided ventral hernia. The patient will be referred to surgery since the hernia is causing pain. I discussed all the findings and test results with the patient. Patient was instructed to return to the emergency room immediately if any of the symptoms return or worsens. Plan of care was discussed with the patient and understands and agrees. All questions were answered at patient satisfaction. There were no further complaints or concerns. Lung exam before discharge: CTA B/L. Good air exchange. No wheezing or crackles heard. CVS: S1 and S2 present. No murmurs appreciated. Patient is alert and oriented x 3. Patient is hemodynamically stable. Patient will be discharged home with follow up PCP in the next 2-3 days - Diagnoses Differential Diagnosis: Positive: Appendicitis, Bowel Obstruction, Constipation , Diverticulitis, Urinary Tract Infection Provider Diagnoses: Ventral hernia, Abdominal pain, acute, Hepatic cyst Discharge - Sign-Out/Discharge Documenting (check all that apply): Patient Departure Patient Received Moderate/Deep Sedation with Procedure: No - Discharge Plan Condition: Stable Disposition: HOME Patient Education Materials: Acute Abdominal Pain (ED), Ventral Hernia (ED) Referrals: Mary Anne Rider MD [Primary Care Provider] - Shaun Arroyo MD [Medical Doctor] - 1 Day Additional Instructions: Follow up with your primary care physician in 1-3 days. RETURN TO THE EMERGENCY DEPARTMENT FOR CHANGING OR WORSENING SYMPTOMS. - Billing Disposition and Condition Condition: STABLE Disposition: Home - Attestation Statements Document Initiated by Scribe: Yes Documenting Scribe: Spencer Cole Provider For Whom Scribe is Documenting (Include Credential): Omid Zapien MD Scribe Attestation: Spencer Andre scribed for Omid Zapien MD on 09/13/18 at 2049. Scribe Documentation Reviewed: Yes Provider Attestation: The documentation as recorded by the Spencer rivas accurately reflects the service I personally performed and the decisions made by me, Omid Zapien MD Status of Scribnnamdi Document: Viewed
[2018-09-12] MEDS ORDERED: NS 0.9% 1000 ML** 1,000 ML IV ONE (13:18)
[2018-09-12 13:44] LABS: Urine Appearance Clear; Urine Bilirubin Negative (Negative); Urine Blood Negative (Negative); Urine Color Yellow; Urine Glucose Negative (Negative); Urine Ketones Negative (Negative); Urine Nitrite Negative (Negative); Urine Protein Negative (Negative); Urine Specific Gravity 1.018 (1.010-1.030); Urine Urobilinogen Negative (Negative)
[2018-09-12 14:05] LABS: ABS Basophils 0 10^3/ul (0-0.2); ABS Eosinophils 0.2 10^3/ul (0-0.6); ABS Lymphocytes 1.2 10^3/ul (1.0-4.8); ABS Monocytes 0.3 10^3/ul (0-0.8); ABS Nucleated RBC 0 10^3/ul; Eosinophil % 4.7 %; Hematocrit 39 % (35-47); Hemoglobin 12.9 g/dl (12.0-16.0); Lymphocyte % 32.6 %; Mean Corpuscular HGB Conc 33 g/dl (31-36); Mean Corpuscular Hemoglobin 31 pg (27-31); Mean Corpuscular Volume 91 fL (80-97); Mean Platelet Volume 7.5 fL (7.4-10.4); Nucleated Red Blood Cells % 0.1; Platelet Count 312 10^3/ul (150-450); Red Blood Count 4.22 10^6/ul (4.00-5.40); Red Cell Distribution Width 13 % (10.5-15); White Blood Count 3.8 10^3/ul (3.5-10.8)
[2018-09-12 14:18] LABS: Albumin 3.8 g/dL (3.2-5.2); Albumin/Globulin Ratio 1.2 (1-3); BUN/Creatinine Ratio 27.7 (8-20); C Reactive Protein 5.32 mg/L (<8.01); Calcium 9.7 mg/dL (8.6-10.3); EGFR African American 107.5 (>60); EGFR Non-African American 88.9 (>60); Globulin 3.1 g/dL (2-4); Potassium 3.4 mmol/L (3.5-5.0); Total Bilirubin 0.3 mg/dL (0.2-1.0); Total Protein 6.9 g/dL (6.4-8.9)
[2018-09-12] MEDS ORDERED: Iohexol 300* (CONTRAST) 10 ML SDV IV ONE (14:38)
[2018-09-12] MEDS ORDERED: Potassium Chlor TAB* 20 MEQ TAB.ER PO ONE (15:13)
[2018-09-12 16:59] VITALS: BP 136/93
== END 2018-09-12 17:09 | disposition home or self-care (01) ==
LOC: ED 12:51
DX: K43.9 Ventral hernia without obstruction or gangrene (principal); R10.9 Unspecified abdominal pain; K76.89 Other specified diseases of liver; R11.0 Nausea; R50.9 Fever, unspecified; I10 Essential (primary) hypertension
CPT/HCPCS: 36415; 74177; 80053; 81003; 83605; 83690; 85025; 86140; 93005; 99283; A9270-GY; Q9967

== ENCOUNTER 2019-07-12 11:13 | Emergency (ER) | payer MEDICARE ==
[2019-07-12] MEDS ORDERED: Acetaminophen TAB* 325 MG PO ONE (11:31)
[2019-07-12 11:36] VITALS: BP 142/83
--- NOTE | 2019-07-12 12:04 | UC ---
Lower Extremity/Ankle HPI - HPI Summary HPI Summary: 78-year-old female presents with complaints of right ankle pain. States one week ago she slipped and fell in her kitchen causing a twisting injury to the right ankle. Reports bruising and swelling of the ankle immediately after the injury which has been improving. Reports she has been unable to walk or bear weight since that time of the injury and has been using crutches at home to ambulate. Patient states that she has been unable to seek medical attention as she was noted at her home. Has been taking acetaminophen with some relief in pain. Last dose was at 3 AM this morning. Reports previous fracture to the right leg. Denies numbness or tingling. - History of Current Complaint Chief Complaint: UCLowerExtremity Stated Complaint: ANKLE INJURY Time Seen by Provider: 07/12/19 11:21 Hx Obtained From: Patient Pain Intensity: 8 - Allergies/Home Medications Allergies/Adverse Reactions: Allergies Allergy/AdvReac Type Severity Reaction Status Date / Time acetaminophen [From Vicodin] Allergy Unknown Verified 07/12/19 11:39 Reaction Details codeine Allergy Nausea Verified 07/12/19 11:39 hydrocodone [From Vicodin] Allergy Unknown Verified 07/12/19 11:39 Reaction Details Home Medications: Home Medications Acetaminophen [8Hr Arthritis Pain Relief] 800 mg PO ONCE PRN 07/12/19 [History Confirmed 07/12/19] Benzonatate 100 mg PO TID PRN 07/12/19 [History Confirmed 07/12/19] hydrOXYzine HCl [Hydroxyzine HCl] 1 tab PO DAILY PRN 07/12/19 [History Confirmed 07/12/19] PMH/Surg Hx/FS Hx/Imm Hx Cardiovascular History: Hypertension GI/ History: Gastroesophageal Reflux - Surgical History Surgical History: Yes Surgery Procedure, Year, and Place: cataracts, glaucoma, pancreatic duct dilation. total hysterectomy. hernia repair - Family History Known Family History: Positive: Hypertension, Other - GUPTA (sister), colon and breast cancer - Social History Occupation: Retired Lives: Alone Alcohol Use: None Substance Use Type: None Smoking Status (MU): Never Smoked Tobacco - Immunization History Most Recent Influenza Vaccination: has not had Most Recent Pneumonia Vaccination: has had within the last 5 years Review of Systems All Other Systems Reviewed And Are Negative: Yes Constitutional: Positive: Negative Skin: Positive: Bruising Respiratory: Positive: Negative Cardiovascular: Positive: Negative Gastrointestinal: Positive: Negative Genitourinary: Positive: Negative Motor: Negative: Weakness Neurovascular: Negative: Decreased Sensation Musculoskeletal: Positive: Other: - See HPI Neurological: Positive: Negative Is Patient Immunocompromised?: No Physical Exam - Summary Physical Exam Summary: GENERAL APPEARANCE: Well developed, well nourished, alert and cooperative, and appears to be in no acute distress. CARDIAC: Normal S1 and S2. No S3, S4 or murmurs. Rhythm is regular. There is no peripheral edema, cyanosis or pallor. Extremities are warm and well perfused. Capillary refill is less than 2 seconds. Peripheral pulses intact. LUNGS: Clear to auscultation without rales, rhonchi, wheezing or diminished breath sounds. ABDOMEN: Positive bowel sounds. Soft, nondistended, nontender. No guarding or rebound. No masses or hepatosplenomegally. MUSKULOSKELETAL: ROM intact to all extremities. No joint erythema or tenderness. Normal muscular development. Normal gait. EXTREMITIES: Tenderness over the right lateral malleolus with mild edema. No gross deformity or ecchymosis noted. ROM limited due to pain. Circulation and sensation intact. SKIN: Skin normal color, texture and turgor. Triage Information Reviewed: Yes Vital Signs: Initial Vital Signs Temp 98.1 F 07/12/19 11:26 Pulse 95 07/12/19 11:26 Resp 18 07/12/19 11:26 BP 142/83 07/12/19 11:26 Pulse Ox 100 07/12/19 11:26 Vital Signs Reviewed: Yes Procedures - Splinting Right Lower Extremity Location: right ankle Hand-Made Type: orthoglass Splint: posterior with stirrup Pre-Proc Neuro Vasc Exam: normal Post-Proc Neuro Vasc Exam: normal Splint Applied by Provider: [facility] - Radiology No standard instances Radiology Interpretation Completed By: Radiologist Summary of Radiographic Findings: Order Information: ANKLE RIGHT 3+VWS. INDICATION: Right ankle injury. TECHNIQUE: 3 views of the right ankle were obtained. FINDINGS: There is generalized soft tissue swelling. The bones are mildly osteopenic. A nondisplaced fracture of the distal fibula extends superiorly from the level of the ankle mortise. Near-anatomic alignment is maintained. IMPRESSION: Soft tissue swelling with a nondisplaced distal fibular fracture. Lower Extremity Course/Dx - Course Course Of Treatment: 78-year-old female presents with complaints of right ankle pain. States one week ago she slipped and fell in her kitchen causing a twisting injury to the right ankle. Reports bruising and swelling of the ankle immediately after the injury which has been improving. Reports she has been unable to walk or bear weight since that time of the injury and has been using crutches at home to ambulate. Patient states that she has been unable to seek medical attention as she was noted at her home. Has been taking acetaminophen with some relief in pain. Last dose was at 3 AM this morning. Reports previous fracture to the right leg. Denies numbness or tingling. Afebrile. Hypertensive otherwise vital signs stable. Patient had tenderness over the right lateral malleolus with mild edema without gross deformity or ecchymosis noted, ROM limited due to pain, circulation and sensation were intact. Remainder of exam was unremarkable. X-ray showed a nondisplaced fracture of the distal fibula that extends superiorly from the level of the ankle mortise. Results reviewed with the patient. She was placed in a posterior short leg and stirrup splint by myself using Ortho-Glass. Circulation sensation were intact pre-and post- application. She is to follow-up with orthopedic surgery in 3-5 days. Splint care, anticipatory guidance, and warning symptoms are reviewed with the patient. Verbalizes understanding and agrees with plan of care. - Differential Dx/Diagnosis Differential Diagnosis/HQI/PQRI: Contusion, Dislocation, Fracture (Closed), Sprain Provider Diagnosis: Closed right ankle fracture Discharge ED - Sign-Out/Discharge Documenting (check all that apply): Patient Departure All imaging exams completed and their final reports reviewed: Yes - Discharge Plan Condition: Stable Disposition: HOME Patient Education Materials: Ankle Fracture (ED), Crutch Instructions (ED), Splint Care (ED) Referrals: Mary Anne Rider MD [Primary Care Provider] - Dinesh Mtz MD [Medical Doctor] - 3 Days (Call for appointment.) Additional Instructions: The x-ray performed in the clinic today showed evidence of a fracture of the distal fibula. Rest the ankle as much as possible. You should remain [id number] on the ankle. Use your crutches for support. Wear the splint that was applied in the clinic at all times. Do not get this wet. Apply ice to the affected area for 15-20 minutes at least 4 times a day to help with the pain and swelling. Elevate the leg to help reduce swelling. Take acetaminophen (Tylenol) according to directions as needed for pain. You were given a dose in the clinic at 12:00 pm today. Follow up with orthopedic surgery in 3-5 days for further evaluation and treatment. Call Sunday morning for an appointment. Seek immediate medical attention if you have severe pain not managed with pain medication, develop numbness or tingling in the foot or toes, or have any worsening of symptoms. - Billing Disposition and Condition Condition: STABLE Disposition: Home - Attestation Statements Provider Attestation: I was available for consult. This patient was seen by the DIANE. The patient was not presented to, seen by, or examined by me. -Xin
== END 2019-07-12 12:45 | disposition home or self-care (01) ==
LOC: UCEAST 11:13
DX: S82.831A Other fracture of upper and lower end of right fibula, initial encounter for closed fracture (principal); W01.0XXA Fall on same level from slipping, tripping and stumbling without subsequent striking against object, initial encounter; X50.1XXA Overexertion from prolonged static or awkward postures, initial encounter; Y92.000 Kitchen of unspecified non-institutional (private) residence as the place of occurrence of the external cause; I10 Essential (primary) hypertension; Z88.6 Allergy status to analgesic agent; Z88.5 Allergy status to narcotic agent
CPT/HCPCS: 99212; A9270-GY; G0463

== ENCOUNTER 2019-10-06 10:13 | Emergency (ER) | payer MEDICARE ==
--- OUTSIDE RECORDS SUMMARY | 2019-10-06 10:17 | XMS REPORT | Summary of Care ---
:1940 Author Organization [facility] Address [address] [place] [address] Care Team Providers Name Role Phone Mary Anne Rider MD Primary Care Provider Reason for Visit Reason Comments Follow Up 6 months; no complaints at this time Encounter Details Date Type Department Care Team Description 09/22/2019 Office Visit Christine Angel NP Liver cyst (Primary Dx); Gastroenterology [address] [place] [address] [place] [phone] Allergies Active Allergy Reactions Severity Noted Date Comments Codeine GI Reaction 11/09/2016 Hydrocodone-Acetaminophen GI Reaction Medium 03/02/2011 documented as of this encounter (statuses as of 09/22/2019) Medications Medication Sig Dispensed Refills Start Date End Date Status aspirin 325 MG Oral Take 325 mg by 0 Active Tab mouth DAILY. Brimonidine Tartrate Place to the 0 Active (ALPHAGAN P) 0.1 % external eye. Ophthalmic Solution fluticasone (FLONASE) [place] 2 Sprays in 1 Bottle 5 12/19/2017 Active 50 MCG/ACT Nasal nose DAILY. SuspensionIndications: Allergic sinusitis Additional Information Patient taking differently: 2 [place] Nasal DAILY PRN, Reported on 10/15/2018 1 :16 PM hydrochlorothiazide (HCTZ, TAKE 2 CAPSULES BY 60 Cap 5 05/26/2019 Active ORETIC) 12.5 MG Oral MOUTH EVERY DAY CapIndications: Essential hypertension Lansoprazole 30 MG Oral CAPSULE TAKE 1 CAPSULE BY MOUTH 30 Cap 5 2018 Active DELAYED RELEASE EVERY DAY hydrOXYzine HCL (ATARAX) 10 MG TAKE 1 TABLET BY MOUTH 90 Tab 1 07/17/2019 Active Oral TabIndications: Vertigo AT BEDTIME NEEDED FOR VERTIGO OR DIZZINESS benzonatate (TESSALON PERLES) 100 Take 1 Cap by mouth 42 Cap 3 08/07/2019 Active MG Oral CapIndications: Acute THREE TIMES DAILY bronchitis, unspecified organism NEEDED for cough. documented as of this encounter (statuses as of 09/22/2019) Active Problems Problem Noted Date Liver cyst 09/22/2019 Ventral hernia without obstruction or gangrene 09/27/2018 Overview: Added automatically from request for surgery [id number] PVD (peripheral vascular disease) 12/19/2017 BMI 31.0-31.9,adult 11/09/2016 Essential hypertension 11/09/2016 Glaucoma 11/09/2016 Obesity, unspecified 11/23/2011 Overview: This patient's BMI This patient's BMI has been calculated and is above average, and BMI management plan is completed. General patient education discussion including: weight loss link to reduction of r isk factors for cardiac and other diseases, importance of long-term maintenance treatment in weight loss, and accomplish with exercise as tolerated and diet control Pancreatic duct dilated 06/12/2011 Subclinical hyperthyroidism 03/03/2010 Last Assessment & Plan: Pt is a 69 year old female referred by her PCP For evaluation of her thyroid status . Her TSH as on 12/20/09 is less then 0.02 and her thyroid peroxidase antibody is greater than 1300. She denies any pa lpitations or tremors or any tenderness of her thyroid.She complains of weight gain. In view of her TSH and anti TPO levels and lack of symptomatic correlation , she is more likely to have subclinical hyperthyroidism ,As her thyroid function tests were done more than a month ago the jamar n would be to repeat her , TSH , Free T4 and T3 and reassess for further management. Her need for further diagnostic testing by RA[facility] and medications Vs radioablation can be determined after the resul ts. Acute thyroiditis seems unlikely in absence of any pain, tenderness or swelling of the gland. Pt has been started on deltasone tab PO 20 mg on a tapering dose for her thyroiditis by her PCP. She is currently taking 10 mg daily and we decide to discontinue it as it is unlikely to benefit her from thyroid point of view Pt has been explained the plan and will be notified after her results are available. . Dilated pancreatic duct FH: breast cancer History of DVT in adulthood documented as of this encounter (statuses as of 09/22/2019) Resolved Problems Problem Noted Date Resolved Date BMI 30.0-30.9,adult 02/02/2011 11/23/2011 documented as of this encounter (statuses as of 09/22/2019) Immunizations Name Administration Dates Next Due Influenza (IM) Preservative Free 10/17/2018, 08/14/2013, 05/18/2012, 06/08/2009 Influenza Vaccine High Dose 04/10/2019, 07/18/2017, 08/18/2016 PNEUMOCOCCAL POLYSACCHARIDE VACCINE 09/11/2013 Pneumococcal Conjugate(13 Valent) 08/18/2016 documented as of this encounter Social History Tobacco Use Types Packs/Day Years Used Date Former Smoker Cigarettes 1 8 Quit: 03/02/2005 Smokeless Tobacco: Never Used Comments: quit 2005 Alcohol Use Drinks/Week oz/Week Comments No Sex Assigned at Date Recorded Not on file documented as of this encounter Last Filed Vital Signs Vital Sign Reading Time Taken Comments Blood Pressure 138/78 09/22/2019 9:18 AM EST Pulse 82 09/22/2019 9:18 AM EST Temperature - - Respiratory Rate - - Oxygen Saturation - - Inhaled Oxygen Concentration - - Weight 87.9 kg (193 lb 11.2 oz) 09/22/2019 9:18 AM EST Height 167.6 cm (5' 6") 09/22/2019 9:18 AM EST Body Mass Index 31.26 09/22/2019 9:18 AM EST documented in this encounter Patient Instructions Patient InstructionsChristine Jiang NP - 09/22/2019 9:00 AM ESTPatient Education Gas and Bloating The Basics Written by the doctors and editors at [facility] What causes gas?Causes of gas include: Swallowing air, often while eating, drinking, or smoking. Swallowed air usually comes back out as a burp. Eating certain foods, such as beans, broccoli, fruit, wheat, potatoes, corn , and noodles. Bacteria in the intestines digest parts of these foods and spit out gas. Trouble digesting certain foods, such as wheat or dairy products Conditions that harm the digestive system What causes bloating?The colon has a lot of bends in it ( figure 1). When air gets trapped in these bends, you might feel cramps or sharp pains. This pain is common in the middle and top of the belly on either side. How much gas is normal?Most people pass gas 14 to 23 times each day. Burping beforeand after meals is also common. Gas bothers some people more than others. Why does my gas smell?Most of the gas that comes out of your anus has no smell. Butsome of it contains a substance called sulfur. Sulfur smells bad to most people. Is there anything I can do on my own to get rid of gas and bloating?You might feel better if you: Cut down on certain foods. Write down what you eat so you can figure out which foods are causing your gas. Everyone's body is different. Common causes of gas are: ?? Milk and dairy products ?? Beans ?? Some vegetables, such as cabbage, [employer] sprouts, asparagus, broccoli, potatoes, and corn ?? Some whole grains, such as wheat ?? Most types of fruit ?? Artificial sweeteners ?? Soda and other fizzy drinks ?? Chewing gum Take medicines that contain simethicone (sample brand names: Maalox Anti- Gas, Mylanta Gas, Gas-X, or Phazyme). You can get these at a drug store. Simethicone breaks up gas bubbles in your intestines. Doctors aren't sure how well it works. Take a product called Beano. This can help your body digest beans and some vegetables. Take a medicine called bismuth subsalicylate (brand name: Pepto-Bismol). This can help make gassmell less bad. Should I see a doctor or nurse?See your doctor or nurse if you also have any of these symptoms: Diarrhea Unexplained weight loss Belly pain Blood in bowel movements Loss of appetite Unexplained fever Throwing up Are there tests I should have?Your doctor or nurse will decide which tests you should have based on your age, other symptoms, and individual situation. There are lots of tests, but youmight not need any. Here are the most common tests doctors use to find the cause of gas and bloating : Tests on a sample of your bowel movements to check for blood, unusual levels of fat, and other things Blood test to see if your body has trouble digesting an ingredient called gluten. Gluten is in bread, pasta, condiments, and other foods. Breath test to see if your body has trouble digesting dairy products or if you have an over-growth of bacteria in your intestines. X-rays to see if there is something wrong with your intestines Upper endoscopy or colonoscopy ? For these tests, the doctor puts a thin tube into your stomach or colon. The tube has a camera attached to it, so the doctor can see inside you. The doctor can also take samples of tissue to look at under the microscope (figure 2). How is gas and bloating treated?That depends on what is causing your gas and bloating. Treatments can include: Changing what you eat and drink Changing how you eat and drink. Eating more slowly can help with burping. Using supplements to help you digest dairy products Taking medicines that you can buy at a drug store Taking medicines that your doctor prescribes Can gas be prevented?You can reduce your chances of getting gas again by: Staying away from foods and drinks that cause gas for you Taking Beano when you eat beans and some vegetables Taking supplements that help you digest dairy, if that is your problem Eating more slowly All topics are updated as new evidence becomes available and our peer review process is complete. This topic retrieved from [employer] on: Jun 10, 2019. Topic 27107 Version 4.0 Release: 27.4.5 - C27.318 ?2019?[employer]. and/or its affiliates.?All rights reserved. figure 1: Digestive system This drawing shows the organs in the body that process food. Together these organs are called "the digestive system," or "digestive tract." As food travels through this system, the body absorbs nutrients and water. Graphic 30322 Version 4.0 figure 2: Colonoscopy During a colonoscopy, you lie on your side and the doctor or nurse puts a thin tube with a camera into your anus (from behind). Then the doctor or nurse advances the tube into the rectum and colon. [employer] sends pictures from inside your colon to a television screen. Graphic 45071 Version 5.0 Consumer Information Use and Disclaimer This information is not specific medical advice and does not replace information you receive from your health care provider. This is only a brief summary of general information. It does NOT include allinformation about conditions, illnesses, injuries, tests, procedures, treatments, therapies, discharge instructions or life-style choices that may apply to you. You must talk with your health care provider for complete information about your health and treatment options. This information should not beused to decide whether or not to accept your health care provider's advice, instructions or recommendations. Only your health care provider has the knowledge and training to provide advice that is right for you.The use of [employer] content is governed by the [employer] Terms of Use. 2019 [employer]. All rights reserved. Copyright ?2019?[employer]. and/or its affiliates.?All rights reserved. documented in this encounter Progress Notes Christine Jiang NP - 09/22/2019 9:00 AM EST PATIENT:Isatu Carrington : 1940 DATE OF SERVICE: 09/22/2019 Chief Complaint Patient presents with ? Follow Up 6 months; no complaints at this time SUBJECTIVE: Isatu Carrington is a very pleasant 78-y.o. female who presents for follow-up. MRI showing dilated pancreatic duct with no worrisome and no suspicious findings , grossly unchanged since 2011. Numerous cyst or hamartomas throughout liver similar to before, no worrisome and no suspicious findings. Patient states she experiences bloating periodically but will take Gas-X with resolution. No GI complaints at today's visit. Pt denies: dysphagia, hematemesis, heartburn, abdominal pain, melena, hematochezia, nausea, vomiting, constipation, diarrhea, fever, chills, weight loss, fatigue, jaundice, itching, sore throat, sinus pain, eye pain, visual disturbances, palpitations, leg swelling, cough, shortness of breath, dysuria, hematuria, easy bruising, easy bleeding, dizziness, confusion. Past Medical History: Diagnosis Date ? Dilated pancreatic duct ? Embolism and thrombosis of unspecified site DVT ? Essential (primary) hypertension ? FH: breast cancer 2 sisters from breast cancer ? Gastritis ? Glaucoma ? Hernia of abdominal cavity ? History of DVT in adulthood ? Other postprocedural status(V45.89) left marino cyst aspiration ? Pancreatitis after testing, years ago, hospitalized at [facility] ? Postmenopausal ? RAD (reactive airway disease) with wheezing wheezes when ill family history includes Allergies in her daughter; Asthma in her brother; Breast Cancer in her sister; Cancer in her sister; Cancer (age of onset: 58) in her sister; GI in her brother; Heart in her daughter; Hypertension in her brother, father, mother, and sister; Ovarian Cancer in her maternal aunt; Stroke in her father; Thyroid in her daughter. Past Surgical History: Procedure Laterality Date ? CATARACT EXTRACTION NEC ? COLONOSCOPY N/A 03/07/2018 Procedure: COLONOSCOPY; Surgeon: Nikole Valentin MD; Location: [facility] GI OR ? COLONOSCOPY DIAGNOSTIC ? EGD (CARTWRIGHT / NON CARTWRIGHT) with esoph. dilatation ? CO APPENDECTOMY ? CO GI NUCLEAR PROCEDURE UNLISTED abdominal surgery for gas build up, ? ? CO TOTAL ABDOM HYSTERECTOMY Social History Socioeconomic History ? Marital status: Single Spouse name: Not on file ? Number of children: Not on file ? Years of education: Not on file ? Highest education level: Not on file Occupational History ? Not on file Social Needs ? Financial resource strain: Not on file ? Food insecurity Worry: Not on file Inability: Not on file ? Transportation needs Medical: Not on file Non-medical: Not on file Tobacco Use ? Smoking status: Former Smoker Packs/day: 1.00 Years: 8.00 Pack years: 8.00 Types: Cigarettes Last attempt to quit: 03/02/2005 Years since quittin.5 ? Smokeless tobacco: Never Used ? Tobacco comment: quit 2006 Substance and Sexual Activity ? Alcohol use: No ? Drug use: No ? Sexual activity: Not Currently Lifestyle ? Physical activity Days per week: Not on file Minutes per session: Not on file ? Stress: Not on file Relationships ? Social connections Talks on phone: Not on file Gets together: Not on file Attends spiritism service: Not on file Active member of club or organization: Not on file Attends meetings of clubs or organizations: Not on file Relationship status: Not on file ? Intimate partner violence Fear of current or ex partner: Not on file Emotionally abused: Not on file Physically abused: Not on file Forced sexual activity: Not on file Other Topics Concern ? Back Care Not Asked ? Bike Helmet Not Asked ? Blood Transfusions No ? Caffeine Concern Not Asked ? Exercise Yes Comment: walks daily 1mile ? Hobby Hazards Not Asked ? International Travel Not Asked ? Service Not Asked ? Occupational Exposure Not Asked ? Seat Belt Not Asked ? Self-Exams Not Asked ? Sleep Concern Not Asked ? Special Diet Not Asked ? Stress Concern Not Asked ? Weight Concern Not Asked Social History Narrative Single 3 children. 7 grandchildren that live with her. Pets: puppy Vicodin [hydrocodone-acetaminophen] and Codeine Current Outpatient Medications Medication Sig ? aspirin 325 MG Oral Tab Take 325 mg by mouth DAILY. ? benzonatate (TESSALON PERLES) 100 MG Oral Cap Take 1 Cap by mouth THREE TIMES DAILY NEEDED for cough. ? Brimonidine Tartrate (ALPHAGAN P) 0.1 % Ophthalmic Solution Place to the external eye. ? fluticasone (FLONASE) 50 MCG/ACT Nasal Suspension [place] 2 Sprays in nose DAILY. (Patient taking differently: [place] 2 Sprays in nose DAILY NEEDED. ) ? hydrochlorothiazide (HCTZ, ORETIC) 12.5 MG Oral Cap TAKE 2 CAPSULES BY MOUTH EVERY DAY ? hydrOXYzine HCL (ATARAX) 10 MG Oral Tab TAKE 1 TABLET BY MOUTH AT BEDTIME NEEDED FOR VERTIGO OR DIZZINESS ? Lansoprazole 30 MG Oral CAPSULE DELAYED RELEASE TAKE 1 CAPSULE BY MOUTH EVERY DAY No current facility-administered medications for this visit. ROS: A comprehensive 10 point ROS was completed and negative except as mentioned in HPI. OBJECTIVE: BP 138/78 | Pulse 82 | Ht 5' 6" (1.676 m) | Wt 193 lb 11.2 oz (87.9 kg) | BMI 31.26 kg/m Physical Examination GENERAL: alert, oriented, no acute distress. SKIN: normal, no rashes or abnormalities noted. Skin acyanotic, warm, dry. EYES: PERRL, no scleral icterus LUNGS: respiratory effort unlabored. HEART: regular rhythm. ABDOMEN: Soft, non-tender, BS x 4. No guarding/rigity/rebound. Lab Results Component Value Date WBC 4.31 03/20/2019 HGB 13.1 03/20/2019 HCT 41.1 03/20/2019 PLAT 301 03/20/2019 Lab Results Component Value Date NA 138 03/20/2019 K 3.7 03/20/2019 CL 101 03/20/2019 CO2 29 03/20/2019 GLUCOSE 99 03/20/2019 BUN 16 03/20/2019 CREATININE 0.6 (L) 03/20/2019 CALCIUM 9.3 03/20/2019 TP 8.2 03/20/2019 ALBUMIN 4.3 03/20/2019 AST 44 03/20/2019 ALT 32 03/20/2019 ALK 101 03/20/2019 TBILI 0.2 03/20/2019 EGFR >60 03/20/2019 Impression/Plan ICD-9-CM ICD-10-CM 1. Liver cyst 573.8 K76.89 2. Bloating 787.3 R14.0 1. Liver cyst? MRI showing dilated pancreatic duct with no worrisome and no suspicious findings, grossly unchanged since 2011. Numerous cyst or hamartomas throughout liver similar to before, noworrisome and no suspicious findings. 2. Bloating Avoid gum chewing, straw drinking, carbonated beverages Eat slowly Cut down on dairy, cabbage, brussels sprouts, asparagus beans, broccoli, fruit, wheat, potatoes, corn, noodles, artificial sweeteners Take simethicone-based medications such as Gas-X/Phazyme or Beano as needed to break up the bubbles Take Pepto-Bismol tablets if you have foul-smelling gas?this may make stool black Return to Clinic 1 year She was encouraged to call if questions or problems arise. She tells me she will be compliant. This note was created using [employer] Dict[employer]. It is accurate to the best of my knowledge, but vocabulary errors may be present due to software. AUTHOR:Christine Jiang NP Section of Gastroenterology 09/22/2019 09:38 documented in this encounter Plan of Treatment Date Type Specialty Care Team Description 10/09/2019 Office Visit Family Practice Mary Anne Rider MD [address] [place] [address] [phone] 09/22/2020 Office Visit Gastroenterology Christine Jiang NP [address] [place] [address] [phone] Health Maintenance Due Date Last Done Comments MEDICARE ANNUAL WELLNESS 1940 VISIT DTaP/Tdap/Td Vaccines (1 - 1953 Tdap) ZOSTER IMMUNIZATION SERIES 1992 (1 of 2) DEPRESSION SCREENING 04/10/2020 04/10/2019 FALL RISK ASSESSMENT 04/10/2020 04/10/2019, 04/10/2019 OSTEOPOROSIS SCREENING 11/21/2026 11/21/2016, 09/11/2013 (Declined) PNEUMOCOCCAL 65+YRS Completed 08/18/2016, 09/11/2013 INFLUENZA VACCINE Completed 04/10/2019, 10/17/2018, 07/18/2017, Additional history exists HEPATITIS A IMMUNIZATION Aged Out No longer eligible SERIES based on patient's age to complete this topic HPV IMMUNIZATION SERIES Aged Out No longer eligible based on patient's age to complete this topic MENINGOCOCCAL VACCINE IMM Aged Out No longer eligible based on patient's age to complete this topic documented as of this encounter Goals Goal Patient Goal Associated Recent Patient-Stated? Author Type Problems Progress Blood Pressure Blood 138/78 No Adry, < 150/90 Pressure (09/22/2019 Mary Anne Herbert, 9:18 AM EST) Note: This is an individualized treatment (blood pressure) goal for Isatu Carrington: Displayed above (on the left) is your goal for blood pressure control. Your most recent blood pressure is also shown above, on the right. You should try to achieve blood pressures that are lower than your goal listed above (on the left). Weight loss vs. 18 Lifestyle 15.5 (09/22/2019 9:18 AM No Mary Anne Rider mo max (lbs) >= 10 EST) Note: This is an individualized lifestyle goal for Isatu Carrington: Your body mass index (BMI) is more than 30. You should lose weight. A reasonable starting goal is to lose 10 pounds. Displayed above is how many pounds you have lost thus far towards your 10 pound weight loss goal. Take all prescribed medications as Self-management No Mary Anne Rider MD directed Note: This is an individualized self-management goal for Isatu Carrington: Please take all prescribed medications as directed. 1. Do not skip doses. If you cannot afford your medications, talk with your doctor. 2. Use a pill reminder system such as a pill box if needed. Your pharmacist can help you with this. 3. Contact your Pharmacy 5 days before your medication runs out. If you cannot take your medications for any reasons, talk with your doctor. 4. Please bring all of your medication bottles and inhalers (or a list of all your medications/inhalers) with you to every visit. Potential barriers to meeting all of your care plan goals will continue to be addressed on an ongoing basis. documented as of this encounter Implants Implanted Type Area Blow Mold Technician Device Shelf Expiration Model / Identifier Date Serial / Lot Gregory Nolasco 6" [employer] - [id number] c-[id number]. 07/03/2020 [id number] / Implanted: Qty: 1 on 10/16/2018 by Alen Garces MD at [facility] / [id number] documented as of this encounter Results Not on filedocumented in this encounter Visit Diagnoses Diagnosis Liver cyst Other specified disorders of liver Bloating Flatulence, eructation, and gas pain documented in this encounter Guarantor Name Account Type Relation to Date of Phone Billing Patient Address Isatu Carrington Personal/Family 1940 [address] (Home) [place], [place] [phone] (Work) documented as of this encounter Advance Directives Code Status Date Activated Date Inactivated Comments Full Code 03/02/2011 12:44 AM 03/06/2011 6:47 PM
--- OUTSIDE RECORDS SUMMARY | 2019-10-06 10:17 | XMS REPORT | Continuity of Care Document ---
:1940 External Reference #:[id number] Author Name Erik Sue MD (transmitted by agent of provider Amna Reina) Address [address] [place] [address] Care Team Providers Name Role Phone Mary Anne Rider MD - Care Team Information [facility] Family Practice [phone] Family Medicine Problems Active Problems Provider Date Closed fracture of lateral malleolus Erik Sue MD Onset: 07/15/2019 Social History Type Date Description Comments Sex Unknown ETOH Use Denies alcohol use Tobacco Use Start: Unknown End: Patient is a former smoker Smoking Status Reviewed: 08/29/19 Patient is a former smoker Exercise Type/Frequency Exercises sporadically Allergies, Adverse Reactions, Alerts Active Allergies Reaction Severity Comments Date Tylenol 07/15/2019 Codeine 07/15/2019 Hydrocodone 07/15/2019 Vicodin 07/15/2019 Medications Active Medications SIG Qnty Indications Ordering Date Provider Aspirin 81 1 by mouth Unknown 81mg Tablets DR every day Hydrochlorothiazide 1 by mouth Unknown 25mg Tablets every day Lansoprazole 1 by mouth Unknown 30mg Capsules DR every day Benzonatate take one or two Unknown 100mg Capsules capsules every 8 hours as needed for cough. Alphagan P 1 drop both Unknown 0.1% Solution eyes twice a day Hydroxyzine HCL 1 by mouth as Unknown 10mg Tablets directed Immunizations Description No Information Available Vital Signs Date Vital Result Comment 08/29/2019 10:20am Height 66 inches 5'6" Weight 196.00 lb Heart Rate 94 /min BP Systolic 116 mmHg BP Diastolic 80 mmHg Respiratory Rate 16 /min Pain Level 9 BMI (Body Mass Index) 31.6 kg/m2 07/15/2019 9:42am Height 66 inches 5'6" Weight 195.00 lb Heart Rate 88 /min BP Systolic Sitting 118 mmHg BP Diastolic Sitting 82 mmHg Respiratory Rate 18 /min Pain Level 9 O2 % BldC Oximetry 92 % BMI (Body Mass Index) 31.5 kg/m2 Results Description No Information Available Procedures Description No Information Available Medical Devices Description No Information Available Encounters Type Date Location Provider Dx Diagnosis Office Visit 07/15/2019 [facility] Erik Sue, S82.64xA Nondisp fx of 9:00a at [facility] lateral malleolus of right fibula, init Assessments Date Code Description Provider 08/29/2019 S82.64xD Nondisplaced fracture of lateral malleolus of Erik Sue MD right fibula, subsequent encounter for closed fracture with routine healing 07/15/2019 S82.64xA Nondisplaced fracture of lateral malleolus of Erik Sue MD right fibula, initial encounter for closed fracture Plan of Treatment Future Appointment(s):09/29/2019 8:00 am - Erik Sue MD at [facility] at [facility]2608/29/2019 - Erik Sue MDS82.64xD Nondisplaced fracture of lateral malleolus of right fibula, subsequent encounter for closedfracture with routine healingNew Xrays:Ankle Right 3+VWS, Ordered: Follow up:Follow Up: 1 month Functional Status Description No Information Available Mental Status Description No Information Available Referrals Description No Information Available
--- OUTSIDE RECORDS SUMMARY | 2019-10-06 10:18 | XMS REPORT | Summary of Care ---
:1940 Author Organization [facility] Address [address] [place] [address] Care Team Providers Name Role Phone Mary Anne Rider MD Primary Care Provider Reason for Visit Reason Comments Cough sinus pressure, both ears hurt, yellow/green tinge to phlegm, productive, Conjunctivitis both eyes very red, and almost swollen shut this morning Encounter Details Date Type Department Care Team Description 08/07/2019 Office Visit [facility], Acute bronchitis, unspecified organism (Primary Dx); Practice Mary Anne Herbert MD Acute bacterial conjunctivitis of both eyes; [address] Acute non-recurrent sinusitis, unspecified location [place], [place] [id number] [place] [address] [phone] Allergies Active Allergy Reactions Severity Noted Date Comments Codeine GI Reaction 11/09/2016 Hydrocodone-Acetaminophen GI Reaction Medium 03/02/2011 documented as of this encounter (statuses as of 08/07/2019) Medications Medication Sig Dispensed Refills Start Date End Date Status aspirin 325 MG Oral Take 325 mg by 0 Active Tab mouth DAILY. Brimonidine Tartrate Place to the 0 Active (ALPHAGAN P) 0.1 % external eye. Ophthalmic Solution fluticasone (FLONASE) [place] 2 Sprays in 1 Bottle 5 12/19/2017 Active 50 MCG/ACT Nasal nose DAILY. SuspensionIndications: Allergic sinusitis Additional information Patient taking differently: 2 [place] Nasal DAILY PRN, Reported on 10/15/2018 1 :16 PM hydrochlorothiazide (HCTZ, TAKE 2 CAPSULES 60 Cap 5 05/26/2019 Active ORETIC) 12.5 MG Oral BY MOUTH EVERY CapIndications: Essential DAY hypertension Lansoprazole 30 MG Oral TAKE 1 CAPSULE 30 Cap 5 06/05/2019 Active CAPSULE DELAYED RELEASE BY MOUTH EVERY DAY hydrOXYzine HCL (ATARAX) TAKE 1 TABLET 90 Tab 1 07/17/2019 Active 10 MG Oral TabIndications: BY MOUTH AT Vertigo BEDTIME NEEDED FOR VERTIGO OR DIZZINESS benzonatate (TESSALON Take 1 Cap by 42 Cap 3 08/07/2019 Active PERLES) 100 MG Oral mouth THREE CapIndications: Acute TIMES DAILY bronchitis, unspecified NEEDED for organism cough. amoxicillin-clavulanic Take 1 Tab by 20 Tab 0 08/07/201908/17/ Active acid (AUGMENTIN 875 MG) mouth TWICE 2019 875-125 MG Oral DAILY for 10 TabIndications: Acute days. Take with non-recurrent sinusitis, food unspecified location, Acute bronchitis, unspecified organism Azithromycin 1 % Place 1 Drop to 3.5 mL 0 08/07/2019 Active Ophthalmic the external SolutionIndications: Acute eye bacterial conjunctivitis DIRECTED. 1 of both eyes drop in both eyes twice today, then once daily for 4 more days benzonatate (TESSALON by Does not 0 12/11/2017 PERLLES) 100 MG Oral Cap apply route. 2019 (Reorder) documented as of this encounter (statuses as of 08/07/2019) Active Problems Problem Noted Date Ventral hernia without obstruction or gangrene 09/27/2018 Overview: Added automatically from request for surgery [id number] PVD (peripheral vascular disease) 12/19/2017 BMI 31.0-31.9,adult [...] as of this encounter (statuses as of 08/07/2019) Resolved Problems Problem Noted Date Resolved Date BMI 30.0-30.9,adult 02/02/2011 11/23/2011 documented as of this encounter (statuses as of 08/07/2019) Immunizations Name Administration Dates Next Due Influenza [...] Assigned at Date Recorded Not on file Job Start Date Occupation Industry Not on file Not on file Not on file Travel History Travel Start Travel End No recent travel history available. documented as of this encounter Last Filed Vital Signs Vital Sign Reading Time Taken Comments Blood Pressure 138/78 08/07/2019 12:47 PM EST Pulse 99 08/07/2019 12:47 PM EST Temperature 37.4 08/07/2019 12:47 PM EST C (99.3 F) Respiratory Rate 20 08/07/2019 12:47 PM EST Oxygen Saturation 99% 08/07/2019 12:47 PM EST Inhaled Oxygen Concentration - - Weight 88.9 kg (196 lb) 08/07/2019 12:47 PM EST Height 167.6 cm (5' 6") 08/07/2019 12:47 PM EST Body Mass Index 31.64 08/07/2019 12:47 PM EST documented in this encounter Patient Instructions Patient InstructionsMary Anne Rider MD - 08/07/2019 12:40 PM ESTFor sinusitis and bronchitis start Augmentin twice dialy x 10 days. Take with food or it will upsetyour stomach. For conjunctivitis start azithromycin eye drops 1 drip twice today then once a day for 4 more days. Stay well hydrated. Return if symptoms worsen. See your eye doctor if eyes worsen. Call orthopedics for your foot pain. documented in this encounter Progress Notes Mary Anne Rider MD - 08/07/2019 12:40 PM EST PATIENT: Isatu Carrington : 1940 DATE OF SERVICE: 08/07/2019 CHIEF COMPLAINT: Chief Complaint Patient presents with Cough sinus pressure, both ears hurt, yellow/green tinge to phlegm, productive, Conjunctivitis both eyes very red, and almost swollen shut this morning Subjective HISTORY OF PRESENT ILLNESS: Isatu Carrington is a 78-y.o. female. Nursing Notes: Neeru Gamboa LPN 08/07/2019 12:51 PM Sign at exiting of workspace Chief Complaint Patient presents with Cough sinus pressure, both ears hurt, yellow/green tinge to phlegm, productive, Conjunctivitis both eyes very red, and almost swollen shut this morning She fractured Her ankle a few weeks ago, thinks her BP is up due to the pain from that. She is being seen at [facility]. She has continued pain,burning. I told her to call and see her orthopedics for this. URI The history is provided by the patient. This is a new problem. The current episode started in the past 7 days. The problem has been gradually worsening. Maximum temperature: subjective fever and chills. The fever has been present for 3 to 4 days. Associated symptoms include nausea, congestion, ear pain, headaches, plugged ear sensation, rhinorrhea, sinus pain, swollen glands, cough and wheezing. Pertinent negatives include no chest pain, no abdominal pain, no diarrhea, no vomiting, no sore throat, no neck pain and no rash. Associated symptoms comments: Left sinus pain, eyes are red with drainage Has green nasal drainage Has duff sputum Painful swollen glands in her neck She was ill at [facility], improved, but now ill again. She has tried rest and increased fluids (kyle Maxwell plus) for the symptoms. 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 DVT Essential (primary) hypertension FH: breast cancer 2 sisters from breast cancer Gastritis Glaucoma Hernia of abdominal cavity History of DVT in adulthood Other postprocedural status(V45.89) left marino cyst aspiration Pancreatitis after testing, years ago, hospitalized at [facility] Postmenopausal RAD (reactive airway disease) with wheezing wheezes when ill Family History Problem Relation Age of Onset Ovarian Cancer Maternal Aunt Hypertension Mother Hypertension Father Stroke Father Hypertension Sister Cancer Sister Hypertension Brother Allergies Daughter Thyroid Daughter Cancer Sister 58 breast Breast Cancer Sister GI Brother Asthma Brother Heart Daughter valve problems Current Outpatient Medications Medication Sig amoxicillin-clavulanic acid (AUGMENTIN 875 MG) 875-125 MG Oral Tab Take 1 Tab by mouth TWICE DAILY for 10 days. Take with food aspirin 325 MG Oral Tab Take 325 mg by mouth DAILY. Azithromycin 1 % Ophthalmic Solution Place 1 Drop to the external eye DIRECTED. 1 drop in both eyes twice today, then once daily for 4 more days benzonatate (TESSALON PERLES) 100 MG Oral Cap Take 1 Cap by mouth THREE TIMES DAILY NEEDEDfor cough. Brimonidine Tartrate (ALPHAGAN P) 0.1 % Ophthalmic Solution Place to the external eye. fluticasone (FLONASE) 50 MCG/ACT Nasal Suspension [place] 2 Sprays in nose DAILY. (Patient taking differently: [place] 2 Sprays in nose DAILY NEEDED.) hydrochlorothiazide (HCTZ, ORETIC) 12.5 MG Oral Cap TAKE 2 CAPSULES BY MOUTH EVERY DAY hydrOXYzine HCL (ATARAX) 10 MG Oral Tab TAKE 1 TABLET BY MOUTH AT BEDTIME NEEDED FOR VERTIGO OR DIZZINESS Lansoprazole 30 MG Oral CAPSULE DELAYED RELEASE TAKE 1 CAPSULE BY MOUTH EVERY DAY No current facility-administered medications for this visit. Allergies Allergen Reactions Vicodin [Hydrocodone-Acetaminophen] GI Reaction Codeine GI Reaction Social History Socioeconomic History Marital status: Single Spouse name: Not on file Number of children: Not on file Years of education: Not on file Highest education level: Not on file Occupational History Not on file Social Needs Financial resource strain: Not on file Food insecurity Worry: Not on file Inability: Not on file Transportation needs Medical: Not on file Non-medical: Not on file Tobacco Use Smoking status: Former Smoker Packs/day: 1.00 Years: 8.00 Pack years: 8.00 Types: Cigarettes Last attempt to quit: 03/02/2005 Years since quittin.4 Smokeless tobacco: Never Used Tobacco comment: quit 2006 Substance and Sexual Activity Alcohol use: No Drug use: No Sexual activity: Not Currently Lifestyle Physical activity Days per week: Not on file Minutes per session: Not on file Stress: Not on file Relationships Social connections Talks on phone: Not on file Gets together: Not on file Attends [employer] service: Not on file Active member of club or organization: Not on file Attends meetings of clubs or organizations: Not on file Relationship status: Not on file Intimate partner violence Fear of current or ex partner: Not on file Emotionally abused: Not on file Physically abused: Not on file Forced sexual activity: Not on file Other Topics Concern Back Care Not Asked Bike Helmet Not Asked Blood Transfusions No Caffeine Concern Not Asked Exercise Yes Comment: walks daily 1mile Hobby Hazards Not Asked International Travel Not Asked Service Not Asked Occupational Exposure Not Asked Seat Belt Not Asked Self-Exams Not Asked Sleep Concern Not Asked Special Diet Not Asked Stress Concern Not Asked Weight Concern Not Asked Social History Narrative Single 3 children. 7 grandchildren that live with her. Pets: puppy REVIEW OF SYSTEMS: Review of Systems Constitutional: Positive for chills, fever and malaise/fatigue. HENT: Positive for congestion, ear pain, rhinorrhea and sinus pain. Negative for nosebleeds and sorethroat. Eyes: Positive for redness. Negative for blurred vision. Respiratory: Positive for cough, sputum production and wheezing. Negative for hemoptysis and shortness of breath. Cardiovascular: Negative for chest pain, palpitations and leg swelling. Gastrointestinal: Positive for nausea. Negative for abdominal pain, diarrhea and vomiting. Musculoskeletal: Negative for neck pain. Skin: Negative for rash. Neurological: Positive for headaches. Objective PHYSICAL EXAM: VITALS: BP 138/78 (BP Location: Left arm, Patient Position: Sitting) | Pulse 99 | Temp 99.3 F(37.4 C) (Tympanic) | Resp 20 | Ht 5' 6" (1.676 m) | Wt 196 lb (88.9 kg) | SpO2 99% | BMI 31.64 kg/m Body mass index is 31.64 kg/m. Physical Exam Constitutional: General: She is not in acute distress. Appearance: She is ill-appearing and toxic-appearing. She is not diaphoretic. HENT: Head: Normocephalic. Right Ear: Tympanic membrane normal. Left Ear: Tympanic membrane normal. Nose: Congestion and rhinorrhea present. Mouth/Throat: Mouth: Mucous membranes are moist. Pharynx: Posterior oropharyngeal erythema present. No oropharyngeal exudate. Eyes: General: Right eye: Discharge present. Left eye: Discharge present. Comments: bilateral conjunctival injection Neck: Musculoskeletal: Normal range of motion and neck supple. No neck rigidity or muscular tenderness. Vascular: No carotid bruit. Cardiovascular: Rate and Rhythm: Normal rate and regular rhythm. Heart sounds: Normal heart sounds. Pulmonary: Effort: Pulmonary effort is normal. No respiratory distress. Breath sounds: No stridor. Rhonchi present. No wheezing or rales. Comments: Rhonchi right lower lobe Chest: Chest wall: No tenderness. Abdominal: General: Abdomen is flat. Bowel sounds are normal. There is no distension. Palpations: Abdomen is soft. There is no mass. Tenderness: There is no abdominal tenderness. There is no right CVA tenderness, left CVA tenderness, guarding or rebound. Lymphadenopathy: Cervical: Cervical adenopathy present. Skin: General: Skin is warm and dry. Findings: No rash. Neurological: General: No focal deficit present. Mental Status: She is oriented to person, place, and time. Psychiatric: Mood and Affect: Mood normal. Behavior: Behavior normal. ASSESSMENT / IMPRESSION: ICD-9-CM ICD-10-CM 1. Acute bronchitis, unspecified organism 466.0 J20.9 benzonatate (TESSALON PERLES) 100 MG Oral Cap amoxicillin-clavulanic acid (AUGMENTIN 875 MG) 875-125 MG Oral Tab 2. Acute bacterial conjunctivitis of both eyes 372.03 H10.33 Azithromycin 1 % Ophthalmic Solution 3. Acute non-recurrent sinusitis, unspecified location 461.9 J01.90 amoxicillin- clavulanic acid (AUGMENTIN 875 MG) 875-125 MG Oral Tab Plan Patient Instructions For sinusitis and bronchitis start Augmentin twice dialy x 10 days. Take with food or it will upsetyour stomach. For conjunctivitis start azithromycin eye drops 1 drip twice today then once a day for 4 more days. Stay well hydrated. Return if symptoms worsen. See your eye doctor if eyes worsen. Call orthopedics for your foot pain. Author: Mary Anne Rider MD 08/07/2019 13:21 documented in this encounter Plan of Treatment Date Type Specialty Care Team Description 09/22/2019 Office Visit Gastroenterology Christine Jiang, [address] [place] [place] [address] [phone] 10/09/2019 Office Visit Family Practice Mary Anne Rider MD [address] [place], [place] [id number] Health Maintenance Due Date Last Done Comments [...] Blood 138/78 No Adry, < 150/90 Pressure (08/07/2019 Mary Anne Herbert, 12:47 PM EST) Note: This is an individualized treatment (blood pressure) goal for Isatu Carrington: Displayed above (on the left) is your goal for blood pressure control. Your most recent blood pressure is also shown above, on the right. You should try to achieve blood pressures that are lower than your goal listed above (on the left). Weight loss vs. 18 Lifestyle 13.2 (08/07/2019 12:47 PM No Mary Anne Rider mo max (lbs) [...] of this encounter Implants Implanted Type Area Chief Dispatcher Device Shelf Expiration Model / Identifier Date Serial / Lot Mesh, Baileyight 6" [place] - [id number] [employer] 07/03/2020 [id number] / Implanted: Qty: 1 on 10/16/2018 by Alen Garces MD at [facility] / [id number] documented as of this encounter Results Not on filedocumented in this encounter Visit Diagnoses Diagnosis Acute bacterial conjunctivitis of both eyes Acute non-recurrent sinusitis, unspecified location Acute bronchitis, unspecified organism documented in this encounter Guarantor Name Account Type Relation to Date of Phone Billing Patient Address Isatu Carrington Personal/Family 1940 [address] (Home) [place], [place] [phone] [id number] (Work) documented as of this encounter Advance Directives Code Status Date Activated Date Inactivated Comments Full Code 03/02/2011 12:44 AM 03/06/2011 6:47 PM
[2019-10-06 11:14] VITALS: BP 143/94
--- NOTE | 2019-10-06 11:46 | UC ---
FLU HPI - HPI Summary HPI Summary: 78 year old female with multiple co-morbidities presents with congestion, coughing, mild productive keeping the patient up at night, worse with lying down ,body aches, chills, fatigue. Has had multiple colds this winter without treatment that all resolved on their own, however not as severe as this cold. ? tactile fever at home. cough is quite severe - History of Current Complaint Chief Complaint: UCRespiratory Stated Complaint: COUGH Time Seen by Provider: 10/06/19 11:31 Hx Obtained From: Patient ?: No Onset/Duration: Sudden Onset, Lasting Days Severity Currently: Moderate Severity Initially: Severe Pain Intensity: 8 Pain Scale Used: 0-10 Numeric Associated Signs & Symptoms: Positive: Myalgia, Cough, Nasal Congestion, Headache - Allergy/Home Medications Allergies/Adverse Reactions: Allergies Allergy/AdvReac Type Severity Reaction Status Date / Time acetaminophen [From Vicodin] Allergy Unknown Verified 10/06/19 11:14 Reaction Details codeine Allergy Nausea Verified 10/06/19 11:14 hydrocodone [From Vicodin] Allergy Unknown Verified 10/06/19 11:14 Reaction Details Home Medications: Home Medications Aspirin EC TAB* [Ecotrin EC Low Dose 81 MG*] 81 mg PO DAILY 12/11/17 [History Confirmed 10/06/19] Brimonidine P 0.1%(NF) [Alphagan P 0.1% (NF)] 1 drop BOTH EYES TID 12/11/17 [ History Confirmed 10/06/19] Hydrochlorothiazide TAB* [Hydrodiuril TAB*] 25 mg PO DAILY 12/11/17 [History Confirmed 10/06/19] Lansoprazole CAP (NF) [Prevacid CAP (NF)] 30 mg PO DAILY 12/11/17 [History Confirmed 10/06/19] Acetaminophen [8Hr Arthritis Pain Relief] 800 mg PO ONCE PRN 07/12/19 [History Confirmed 10/06/19] hydrOXYzine HCL [Hydroxyzine HCl] 1 tab PO DAILY PRN 07/12/19 [History Confirmed 10/06/19] Albuterol HFA INHALER* [Ventolin HFA Inhaler*] 1 - 2 puff INH Q4H PRN #1 mdi 09/25 [Rx] Amoxicillin/Clavulanate TAB* [Augmentin TAB 875*] 875 mg PO BID #14 tab [Rx] Benzonatate CAP* [Tessalon 100 MG CAP*] 100 mg PO TID PRN #30 cap 10/06/19 [Rx] Dm/P-Ephed/Acetaminoph/Doxylam [Luisa-Triplett Plus Cold+Flu Pkt] 1 each PO Q6H [History Confirmed 10/06/19] Naproxen Sodium [Aleve] 440 mg PO Q12H 10/06/19 [History Confirmed 10/06/19] methylPREDNISolone [Medrol Dosepak 4 MG*] 1 packet PO .SEE HEATHER INSTRUCTION #1 packet 10/06/19 [Rx] PMH/Surg Hx/FS Hx/Imm Hx Previously Healthy: Yes - HTN, DM Endocrine History: Diabetes Cardiovascular History: Hypertension - Surgical History Surgical History: Yes Surgery Procedure, Year, and Place: cataracts, glaucoma, pancreatic duct dilation. total hysterectomy. hernia repair - Family History Known Family History: Positive: Hypertension, Other - GUPTA (sister), colon and breast cancer - Social History Occupation: Retired Alcohol Use: None Substance Use Type: None Smoking Status (MU): Never Smoked Tobacco - Immunization History Most Recent Influenza Vaccination: has not had Most Recent Pneumonia Vaccination: has had within the last 5 years Review of Systems All Other Systems Reviewed And Are Negative: Yes Constitutional: Positive: Fever, Chills, Fatigue ENT: Positive: Nasal Discharge, Sinus Congestion, Sinus Pain/Tenderness Respiratory: Positive: Shortness Of Breath - with coughing, Cough Cardiovascular: Positive: Negative Motor: Positive: Negative Neurological/Mental Status: Positive: Negative Psychological: Positive: Negative Is Patient Immunocompromised?: No Physical Exam Triage Information Reviewed: Yes Appearance: No Pain Distress, Well-Nourished, Ill-Appearing - mild Vital Signs: Initial Vital Signs Temp 98.6 F 10/06/19 11:09 Pulse 95 10/06/19 11:09 Resp 16 10/06/19 11:09 BP 143/94 10/06/19 11:09 Pulse Ox 98 10/06/19 11:09 Vital Signs Reviewed: Yes Eyes: Positive: Conjunctiva Clear ENT: Positive: Pharynx normal - minimal erythema. + PND, TMs normal, Sinus tenderness - b/l. Negative: Pharyngeal erythema, TM bulging, TM dull, TM red, Tonsillar swelling, Tonsillar exudate, Uvula midline Neck: Positive: Supple, Nontender, No Lymphadenopathy. Negative: Nuchal Rigidity, Enlarged Nodes @ Respiratory: Positive: Chest non-tender, Lungs clear, Normal breath sounds, No respiratory distress, No accessory muscle use. Negative: Respiratory distress, Crackles, Rhonchi, Stridor, Wheezing Cardiovascular: Positive: RRR, No Murmur. Negative: Pulses Normal Musculoskeletal: Positive: Strength Intact, ROM Intact Neurological: Positive: Alert Skin Exam: Normal Flu Course/Dx - Course Course Of Treatment: Acute Bronchitis: - Increase fluid intake - Humidifier at night to help with coughing - Good Hygiene, hand washing to prevent spread - Over the counter medications for symptoms - Motrin/ Tylenol as needed for pain, fever - Tessalon Perles for cough- as needed - Medrol dose pack- steroids to help decrease inflammation, help with cough. May stop if side effects too severe - ALbuterol inhaler as needed for cough, shortness of breath - Antibiotics as directed GO to ER with increased shortness of breath, fever > 102 after medications, increased symptoms - Differential Dx/Diagnosis Differential Diagnosis/HQI/PQRI: Influenza, Upper Respiratory Infection Provider Diagnosis: Acute bronchitis Discharge ED - Sign-Out/Discharge Documenting (check all that apply): Patient Departure All imaging exams completed and their final reports reviewed: No Studies - Discharge Plan Condition: Fair Disposition: HOME Prescriptions: Albuterol HFA INHALER* [Ventolin HFA Inhaler*] 1 - 2 puff INH Q4H PRN #1 mdi PRN Reason: shortness of breath, cough Amoxicillin/Clavulanate TAB* [Augmentin TAB 875*] 875 mg PO BID #14 tab Benzonatate CAP* [Tessalon 100 MG CAP*] 100 mg PO TID PRN #30 cap PRN Reason: Cough methylPREDNISolone [Medrol Dosepak 4 MG*] 1 packet PO .SEE HEATHER INSTRUCTION #1 packet Patient Education Materials: Acute Bronchitis (ED) Referrals: Mary Anne Rider MD [Primary Care Provider] - Additional Instructions: Acute Bronchitis: - Increase fluid intake - Humidifier at night to help with coughing - Good Hygiene, hand washing to prevent spread - Over the counter medications for symptoms - Motrin/ Tylenol as needed for pain, fever - Tessalon Perles for cough- as needed - Medrol dose pack- steroids to help decrease inflammation, help with cough. May stop if side effects too severe - ALbuterol inhaler as needed for cough, shortness of breath - Antibiotics as directed GO to ER with increased shortness of breath, fever > 102 after medications, increased symptoms - Billing Disposition and Condition Condition: FAIR Disposition: Home
== END 2019-10-06 12:00 | disposition home or self-care (01) ==
LOC: UCEAST 10:13
DX: J20.9 Acute bronchitis, unspecified (principal); E11.9 Type 2 diabetes mellitus without complications; I10 Essential (primary) hypertension; Z79.899 Other long term (current) drug therapy; Z88.6 Allergy status to analgesic agent; Z88.5 Allergy status to narcotic agent
CPT/HCPCS: 99212; G0463

== ENCOUNTER 2021-11-13 16:27 | Inpatient (IN) ==
[2021-11-13] MEDS ORDERED: HYDROmorphone 1 MG/1 ML SYRINGE IV ONE (18:28)
[2021-11-13 18:53] LABS: ABS Lymphocytes 0.2 10^3/ul (1.0-4.8); ABS Monocytes 0.1 10^3/ul (0-0.8); ABS Neutrophils 7.3 10^3/ul (1.5-7.7); Eosinophil % 0.1 %; Hematocrit 30 % (35-47); Lymphocyte % 2.7 %; Mean Corpuscular HGB Conc 33 g/dL (31-36); Mean Corpuscular Hemoglobin 29 pg (27-31); Mean Corpuscular Volume 89 fL (80-97); Mean Platelet Volume 7.3 fL (7.4-10.4); Platelet Count 181 10^3/uL (150-450); Red Blood Count 3.42 10^6 /uL (3.70-4.87); Red Cell Distribution Width 21 % (10-15); White Blood Count 7.7 10^3/uL (3.5-10.8)
[2021-11-13 19:16] LABS: High Sens Troponin Baseline 17 pg/mL (<15)
[2021-11-13 19:27] LABS: INR 1.41 (0.86-1.15)
[2021-11-13 19:38] LABS: ALT 49 U/L (7-52); AST 94 U/L (13-39); Albumin 3.3 g/dL (3.2-5.2); Alkaline Phosphatase 212 U/L (35-149); Anion Gap 9 mmol/L (2-11); Blood Urea Nitrogen 12 mg/dL (6-24); CO2 Carbon Dioxide 31 mmol/L (22-32); Calcium 9.2 mg/dL (8.6-10.3); Chloride 96 mmol/L (101-111); Globulin 3.2 g/dL (2-4); Glucose 97 mg/dL (70-100); Potassium 3.6 mmol/L (3.5-5.0); Sodium 136 mmol/L (135-145); Total Protein 6.5 g/dL (6.4-8.9); eGFR CKD-EPI 91.1 (>60)
[2021-11-13] MEDS ORDERED: Iohexol 300 (CONTRAST) 10 ML SDV IV ONE ×2 (19:43→23:38)
[2021-11-13] MEDS ORDERED: NS 0.9% 1000 ml BAG 1,000 ML IV ONE (19:59)
[2021-11-13 20:21] LABS: High Sensitivity Troponin 1 Hr 13 pg/mL (<15)
[2021-11-13 21:48] LABS: Urine Appearance Cloudy; Urine Bilirubin Negative (Negative); Urine Blood 3+ (Negative); Urine Color Yellow; Urine Glucose Negative (Negative); Urine Ketones 1+ (Negative); Urine Nitrite Negative (Negative); Urine Protein 1+(30 mg/dL) (Negative); Urine Specific Gravity 1.045 (1.002-1.030); Urine Urobilinogen Negative (Negative)
[2021-11-13 22:01] LABS: Urine Bacteria Absent (Absent); Urine Red Blood Cell 3+(>10/hpf) (Absent); Urine Squamous Epithelial Cell Present (Absent); Urine White Blood Cell 2+(11-20/hpf) (Absent)
[2021-11-13 22:41] LABS: Lipase < 10 U/L (11.0-82.0)
[2021-11-14] MEDS ORDERED: cefTRIAXone 1 gm/50 mL D5W 1 GM/50 ML BAG IV ONE (01:15)
[2021-11-14] MEDS: HYDROmorphone 1 MG/1 ML SYRINGE IV SLOW PU PRN ×2 (01:48→05:40)
[2021-11-14] MEDS: Azithromycin 500 mg/250 ml NS 500 MG/250 ML BAG IVPB SCH ×2 (03:12→22:10)
[2021-11-14] MEDS ORDERED: fentaNYL PATCH 25 MCG/HR 1 PATCH TRANSDERM SCH (06:00)
[2021-11-14] MEDS ORDERED: Enoxaparin 40 MG/0.4 ML SYR SUBCUT SCH (06:00)
[2021-11-14] MEDS: fentaNYL Patch Check Q Shift NOTE FOLLOW UP SCH ×2 (07:21→19:07)
[2021-11-14] MEDS: CMCS:Brimonidine P 0.1%(NF) 1 DROP BTL BOTH EYES SCH ×3 (09:30→20:29)
[2021-11-14] MEDS: CMCS:Dorzolamide/Timolol OPTH (NF) 10 ML BOT RIGHT EYE SCH ×2 (09:30→20:30)
[2021-11-14 09:32] LABS: ABS Lymphocytes 0.4 10^3/ul (1.0-4.8); ABS Monocytes 0.2 10^3/ul (0-0.8); ABS Neutrophils 3.8 10^3/ul (1.5-7.7); Eosinophil % 0.7 %; Hematocrit 30 % (35-47); Hemoglobin 9.8 g/dL (12.0-16.0); Lymphocyte % 9.3 %; Mean Corpuscular HGB Conc 33 g/dL (31-36); Mean Corpuscular Hemoglobin 30 pg (27-31); Mean Corpuscular Volume 90 fL (80-97); Mean Platelet Volume 7.2 fL (7.4-10.4); Nucleated Red Blood Cells % 0.4; Platelet Count 165 10^3/uL (150-450); Red Blood Count 3.29 10^6 /uL (3.70-4.87); Red Cell Distribution Width 21 % (10-15); White Blood Count 4.5 10^3/uL (3.5-10.8)
[2021-11-14 09:44] LABS: INR 1.44 (0.86-1.15)
[2021-11-14] MEDS ORDERED: fentaNYL PATCH 50 MCG/HR 1 PATCH TRANSDERM SCH (10:42)
[2021-11-14 10:45] LABS: Albumin 3.1 g/dL (3.2-5.2); Albumin/Globulin Ratio 1.1 (1-3); Globulin 2.9 g/dL (2-4); Potassium 3.8 mmol/L (3.5-5.0); Total Bilirubin 0.8 mg/dL (0.2-1.0); eGFR CKD-EPI 94.6 (>60)
[2021-11-14] MEDS ORDERED: HYDROmorphone 1 MG/1 ML SYRINGE IV SLOW PU PRN (10:56)
[2021-11-14] MEDS ORDERED: Lidocaine 2.5%/Prilocain 2.5% 5 GM TUBE TOPICAL ONE (12:38)
[2021-11-14] MEDS ORDERED: Lidocaine 4% CREAM (LMX) 5 GM TUBE TOPICAL ONE (13:30)
[2021-11-14] MEDS: Latanoprost 0.005% 2.5 ml BTL RIGHT EYE SCH (20:29)
[2021-11-14] MEDS: cefTRIAXone 1 gm/50 mL D5W 1 GM/50 ML BAG IV SCH (21:32)
[2021-11-15 05:48] LABS: Hematocrit 26 % (35-47); Hemoglobin 8.7 g/dL (12.0-16.0); Mean Corpuscular HGB Conc 33 g/dL (31-36); Mean Corpuscular Hemoglobin 29 pg (27-31); Mean Corpuscular Volume 89 fL (80-97); Mean Platelet Volume 6.8 fL (7.4-10.4); Platelet Count 128 10^3/uL (150-450); Red Blood Count 2.94 10^6 /uL (3.70-4.87); Red Cell Distribution Width 20 % (10-15); White Blood Count 2.7 10^3/uL (3.5-10.8)
[2021-11-15 06:24] LABS: ABS Eosinophils 0.1 10^3/ul (0-0.6); ABS Lymphocytes 0.5 10^3/ul (1.0-4.8); ABS Monocytes 0.5 10^3/ul (0-0.8); ABS Neutrophils 1.6 10^3/ul (1.5-7.7); ABS Nucleated RBC 0.1 10^3/ul; Eosinophil % 2.1 %; Lymphocyte % 17.9 %
[2021-11-15] MEDS: fentaNYL Patch Check Q Shift NOTE FOLLOW UP SCH ×2 (07:02→19:49)
[2021-11-15 07:24] LABS: Potassium 3.4 mmol/L (3.5-5.0); eGFR CKD-EPI 96.9 (>60)
[2021-11-15] MEDS: CMCS:Dorzolamide/Timolol OPTH (NF) 10 ML BOT RIGHT EYE SCH ×2 (08:13→20:45)
[2021-11-15] MEDS: CMCS:Brimonidine P 0.1%(NF) 1 DROP BTL BOTH EYES SCH ×3 (08:14→20:45)
[2021-11-15] MEDS ORDERED: Albuterol HFA INHALER 8 gm MDI INH PRN (12:40)
[2021-11-15 14:09] LABS: Body Fluid WBC 948 /mcL
[2021-11-15 14:29] LABS: Body Fluid Appearance Cloudy; Body Fluid Color Yellow; Body Fluid Source Pleural Fluid
[2021-11-15 14:35] LABS: Body Fluid Mono 13 %; Body Fluid Total Cells Counted 200
[2021-11-15] MEDS ORDERED: Potassium Chlor 20 meq TAB.ER PO ONE (15:14)
[2021-11-15] MEDS ORDERED: Enoxaparin 40 MG/0.4 ML SYR SUBCUT SCH (16:00)
[2021-11-15] MEDS ORDERED: Magnesium CITRATE LIQ 300 ML BTL PO ONE (16:01)
[2021-11-15 17:49] LABS: Total Protein 5.5 g/dL (6.4-8.9)
[2021-11-15] MEDS: Latanoprost 0.005% 2.5 ml BTL RIGHT EYE SCH (20:45)
[2021-11-15] MEDS: cefTRIAXone 1 gm/50 mL D5W 1 GM/50 ML BAG IV SCH (21:54)
[2021-11-15] MEDS: Azithromycin 500 mg/250 ml NS 500 MG/250 ML BAG IVPB SCH (22:46)
[2021-11-16] MEDS: Magnesium Hydroxide LIQ 30 ML UDC PO PRN ×2 (00:54→08:34)
[2021-11-16 06:03] LABS: Hematocrit 27 % (35-47); Hemoglobin 9.2 g/dL (12.0-16.0); Mean Corpuscular HGB Conc 34 g/dL (31-36); Mean Corpuscular Hemoglobin 31 pg (27-31); Mean Corpuscular Volume 90 fL (80-97); Mean Platelet Volume 7.1 fL (7.4-10.4); Platelet Count 121 10^3/uL (150-450); Red Blood Count 3.03 10^6 /uL (3.70-4.87); Red Cell Distribution Width 20 % (10-15); White Blood Count 5.2 10^3/uL (3.5-10.8)
[2021-11-16 06:41] LABS: Calcium 9.1 mg/dL (8.6-10.3); Potassium 3.4 mmol/L (3.5-5.0); eGFR CKD-EPI 93.8 (>60)
[2021-11-16] MEDS: fentaNYL Patch Check Q Shift NOTE FOLLOW UP SCH (07:00)
[2021-11-16] MEDS: CMCS:Brimonidine P 0.1%(NF) 1 DROP BTL BOTH EYES SCH ×2 (08:36→15:23)
[2021-11-16] MEDS: CMCS:Dorzolamide/Timolol OPTH (NF) 10 ML BOT RIGHT EYE SCH (08:37)
[2021-11-16] MEDS ORDERED: Potassium Chlor 20 meq TAB.ER PO ONE (09:03)
[2021-11-16 09:32] LABS: Anisocytosis 1+; Polychromasia 2+
[2021-11-16 09:33] LABS: ABS Lymphocytes 0.6 10^3/ul (1.0-4.8); ABS Monocytes 0.8 10^3/ul (0-0.8); ABS Neutrophils 3.7 10^3/ul (1.5-7.7); Eosinophil % 0.4 %; Lymphocyte % 12.4 %; Nucleated Red Blood Cells % 0.9
[2021-11-16 16:36] LABS: Fluid Type, Protein, Total PLEURAL; Total Protein, BF 3.3 g/dL
[2021-11-17 00:25] VITALS: BP 151/68
[2021-11-17 15:46] LABS: Lactate Dehydrogenase, BF 131 U/L
== END 2021-11-16 19:15 | disposition home or self-care (01) | DRG 166 ==
LOC: ED 16:27 → SUATTDRO 11-14 00:48 → EDHOLD 11-14 00:48 → MED 11-14 03:30 → UNDODISIN 11-16 15:25
PROVIDERS: ADMIT Hospitalist; ATTEND Internal Medicine